=== PATIENT | male | born 1945 | race Caucasian/White ===

== ENCOUNTER 2022-12-14 16:30 | Inpatient (IN) ==
[2022-12-14] MEDS ORDERED: 0.9 % SODIUM CHLORIDE 1,000 ML IV ONE (17:10)
[2022-12-14] MEDS ORDERED: MAGNESIUM SULFATE 2 GM/50 ML BAG IV ONE (17:10)
[2022-12-14 17:39] LABS: POC Calcium, Ionized 1.08 (1.16-1.32); POC Creatinine 0.5 (0.6-1.2); POC Potassium 4.2 (3.3-5.1)
--- NOTE | 2022-12-14 17:44 | Emergency Department Note ---
HPI General Chief complaint: Dizziness Stated complaint: dizziness Time Seen by Provider: 12/14/22 16:38 Source: patient Mode of arrival: wheelchair Limitations: no limitations History of Present Illness HPI Narrative: Narrative: This 77-year-old male presents with the complaint of sudden onset of dizziness while he was out in the sun for too long yesterday. He states he was helping to dig a pool for his daughter. He got sweaty as well as dizzy, but he denied any chest pains. He thinks he may have had some palpitations; he rested initially, then went home and tried to drink lots of fluids, but he continued to be dizzy and developed a headache in the middle of the night. In addition, he's having multiple cramps periodically. Patient's past medical history includes hypertension, COPD, aortic stenosis, and previous episodes of dizziness. Related Data Home Medications Medication Instructions Recorded Confirmed hydrocodone 7.5 mg-acetaminophen 1 tab PO TID 03/05/20 12/15/22 325 mg tablet ibuprofen 200 mg tablet 200 mg PO Q6H PRN Pain 03/05/20 12/15/22 methocarbamol 750 mg tablet 750 mg PO Q8HP PRN muscle spasm 12/14/22 12/15/22 acetaminophen 500 mg tablet 500 mg PO TID 12/15/22 12/15/22 atorvastatin 10 mg tablet 10 mg PO DAILY 12/15/22 12/15/22 cholecalciferol (vitamin D3) 125 125 mcg PO DAILY 12/15/22 12/15/22 mcg (5,000 unit) tablet famotidine 10 mg tablet 10 mg PO DAILY 12/15/22 12/15/22 fluticasone 250 mcg-salmeterol 50 1 inh inhalation BID 12/15/22 12/15/22 mcg/dose blistr powdr for inhalation guaifenesin 600 mg tablet, 600 mg PO BID 12/15/22 12/15/22 extended release 12 hr losartan 25 mg tablet 25 mg PO BID 12/15/22 12/15/22 sildenafil 100 mg tablet 100 mg PO QDAY 12/15/22 12/15/22 tiotropium bromide 18 mcg capsule 1 cap inhalation DAILY 12/15/22 12/15/22 with inhalation device (Spiriva with HandiHaler) Previous Rx's Medication Instructions Recorded albuterol sulfate 90 mcg/actuation 2 puff inhalation Q6H PRN 01/09/21 aerosol inhaler shortness of breath or wheezing #8.5 grams lidocaine 5 % topical patch 1 patch topical QDAY PRN pain #15 04/22/22 (Lidoderm) ea Allergies Allergy/AdvReac Type Severity Reaction Status Date / Time bismuth subsalicylate AdvReac Mild nausea and Verified 12/15/22 07:56 [From Pepto-Bismol] vomiting tamsulosin AdvReac Mild Low blood Verified 12/15/22 07:56 pressure Review of Systems ROS ROS Narrative: Narrative: All systems ED: reviewed and negative except as stated. PFSH Narrative Patient History Narrative: Narrative: Medical/Surgical/Family History All Active Problems (Updated 12/16/22 @ 10:17 by Mike Villatoro MD) Hyponatremia (Chronic) Essential hypertension (Acute) Cigarette smoker (Acute) Acute hyponatremia (Acute) Dizziness (Acute) Osteoarthritis of left shoulder (Chronic) Bursitis of left shoulder (Chronic) Spondylolisthesis of cervical region (Chronic) Degenerative disc disease, cervical (Chronic) Facet arthropathy, cervical (Chronic) Myofascial pain syndrome (Chronic) Dizziness (Chronic) Aortic stenosis, severe (Chronic) Vitamin D deficiency (Chronic) Tobacco use (Chronic) Tinea pedis (Chronic) Shoulder pain (Chronic) Microscopic hematuria (Chronic) Hyperlipidemia (Chronic) Hip pain (Chronic) GERD (gastroesophageal reflux disease) (Chronic) Erectile dysfunction (Chronic) Elevated PSA (Chronic) Depression (Chronic) Chronic obstructive pulmonary disease (Chronic) Chronic low back pain (Chronic) Benign essential hypertension (Chronic) Cervicalgia (Chronic) Sinusitis (Chronic) Acute exacerbation of chronic obstructive airways disease (Chronic) Blood pressure elevated without history of HTN (Chronic) Chronic neck pain (Chronic) Cervical radiculopathy (Chronic) Headache (Chronic) Medical History Acute exacerbation of chronic obstructive airways disease Aortic stenosis, severe Benign essential hypertension Blood pressure elevated without history of HTN Bursitis of left shoulder Cervical radiculopathy Cervicalgia Chronic low back pain Chronic neck pain Chronic obstructive pulmonary disease Degenerative disc disease, cervical Depression Dizziness Elevated PSA Erectile dysfunction Facet arthropathy, cervical GERD (gastroesophageal reflux disease) Headache Hip pain Hyperlipidemia Microscopic hematuria Myofascial pain syndrome Osteoarthritis of left shoulder Shoulder pain Sinusitis Spondylolisthesis of cervical region Tinea pedis Tobacco use Vitamin D deficiency Surgical History History of colonoscopy History of hernia repair Family History Other No pertinent family history Social History Smoking Status: Current every day smoker Alcohol Intake Frequency: does not drink Substance Use: does not use Exam Narrative Narrative: Narrative: General: No acute distress alert and oriented x3 answers questions cogently. Skin: Well tanned as well as inflamed. Capillary refill within 3 seconds. Pulmonary: Clear to auscultation equal bilaterally without rales rhonchi or wheezes. CV: Positive systolic ejection murmur. Abdomen: Soft nontender. Neuro: GCS equals 15. NIH stroke scale equals 0 no sensory or motor lateralizing deficits. General Limitations: no limitations Course Course Course Narrative: EKG showed a sinus rhythm at a rate of 71 with an incomplete right bundle branch block a QTc of 434. This was essentially unchanged from previous EKGs. Patient's sodium is 118 on questioning he states he does not drink huge amounts of water and does not try to avoid salt. I suggested admitting the patient for hypertonic saline treatment but he is resistant to this idea. Patient was started on 3% sodium here in the ED and patient will be turned over to the oncoming doctor at change of shift Vital Signs Vital signs: Vital Signs Temperature 97.0 F 12/14/22 16:32 Pulse Rate 72 12/14/22 16:32 Respiratory Rate 18 12/14/22 16:32 Blood Pressure 147/77 12/14/22 16:32 Pulse Oximetry (%) 97 12/14/22 16:32 Oxygen Delivery Method Room Air 12/14/22 16:32 Temperature 97.2 F 12/18/22 10:36 Pulse Rate 88 12/18/22 10:36 Respiratory Rate 16 12/18/22 10:36 Blood Pressure 136/79 12/18/22 10:36 Pulse Oximetry (%) 96 12/18/22 10:36 Oxygen Delivery Method Room Air 12/18/22 10:36 Oxygen Flow Rate (L/min) 0 12/18/22 02:01 [facility] MDM Narrative Medical decision making narrative: Narrative: Lab Data 12/17/22 04:07 12/18/22 04:00 Labs: Lab Results 12/14/22 12/14/22 12/14/22 Range/Units 17:30 17:30 17:31 WBC 6.9 (4.5-11.0) K/mcL RBC 4.17 L (4.63-6.08) M/mcL Hgb 13.0 L (13.7-17.5) g/dL Hct 35.9 L (40.1-51.0) % POC Hct (41-55) MCV 86.1 (80.0-100.0) fL MCH 31.2 (26.0-34.0) pg MCHC 36.2 H (31.0-36.0) g/dL RDW 11.9 (11.5-14.5) % Plt Count 231 (140-440) K/mcL MPV 10.2 (8.8-12.5) fL Immature Gran % (Auto) 0.3 (0.0-0.5) % Neut % (Auto) 52.0 (38.0-78.0) % Lymph % (Auto) 15.7 (15.5-49.0) % [place] % (Auto) 12.1 H (1.0-12.0) % Eos % (Auto) 18.3 H (0.0-7.0) % Baso % (Auto) 1.6 (0.0-2.0) % Lymph # (Auto) 1.08 L (1.50-4.80) K/mcL [place] # (Auto) 0.83 (0.10-0.90) K/mcL Eos # (Auto) 1.26 H (0.00-0.70) K/mcL Baso # (Auto) 0.11 (0.00-0.30) K/mcL Immature Gran # 0.02 (0.00-0.05) K/mcl Absolute Neutrophils 3.58 (1.80-8.00) K/mcL POC Sodium (133-145) Sodium 114 L* (133-145) mmol/L POC Potassium (3.3-5.1) Potassium 4.5 (3.3-5.1) mmol/L POC Chloride (96-108) Chloride 84 L (96-108) mmol/L Carbon Dioxide 20 L (22-30) mmol/L POC Total CO2 (22-30) Anion Gap 10.0 (8.0-16.0) POC BUN (6-20) BUN 6 L (8-23) mg/dL Creatinine 0.5 L (0.7-1.2) mg/dL POC Creatinine (0.6-1.2) GFR Calculation 104 Glucose 111 H (70-105) mg/dL POC Glucose (70-105) Osmolality 243 L (280-300) mOSM/kg Uric Acid 4.0 (2.5-8.0) mg/dL Calcium 8.7 (8.6-10.4) mg/dL POC WB Ioniz Calcium (1.16-1.32) Phosphorus 3.0 (2.5-4.5) mg/dL Magnesium 1.6 (1.6-2.5) mg/dL Total Bilirubin 0.6 (0.1-1.0) mg/dL Direct Bilirubin < 0.2 (0-0.3) mg/dL GGT 14 (8-61) U/L AST 30 (<40) U/L ALT 21 (<40) U/L Alkaline Phosphatase 61 (39-117) U/L Lactate Dehydrogenase 363 H (135-225) U/L Total Protein 6.1 (5.9-8.4) gm/dL Albumin 3.9 (3.2-5.2) gm/dL Globulin 2.2 (2.2-3.7) gm/dL Albumin/Globulin Ratio 1.8 (1.0-2.3) Triglycerides 82 (<150) mg/dL TSH 0.27 (0.27-5.01) uIU/mL Urine Color Urine Appearance (Clear) Urine pH (5.0-9.0) Ur Specific [place] (1.000-1.035) Urine Protein (Negative) mg/dL Urine Glucose (UA) (Negative) mg/dL Urine Ketones (Negative) mg/dL Urine Occult Blood (Negative) mg/dL Urine Nitrate (Negative) Urine Bilirubin (Negative) mg/dL Urine Urobilinogen mg/dL Ur Leukocyte Esterase (Negative) /uL Ur Culture Indicated? Urine Osmolality (80-1000) mOSM/kg Ur Random Sodium mmol/L POC Troponin I (0.00-0.08) 12/14/22 12/14/22 12/14/22 Range/Units 17:34 18:49 18:51 WBC (4.5-11.0) K/mcL RBC (4.63-6.08) M/mcL Hgb (13.7-17.5) g/dL Hct (40.1-51.0) % POC Hct 41.0 40.0 L (41-55) MCV (80.0-100.0) fL MCH (26.0-34.0) pg MCHC (31.0-36.0) g/dL RDW (11.5-14.5) % Plt Count (140-440) K/mcL MPV (8.8-12.5) fL Immature Gran % (Auto) (0.0-0.5) % Neut % (Auto) (38.0-78.0) % Lymph % (Auto) (15.5-49.0) % [place] % (Auto) (1.0-12.0) % Eos % (Auto) (0.0-7.0) % Baso % (Auto) (0.0-2.0) % Lymph # (Auto) (1.50-4.80) K/mcL [place] # (Auto) (0.10-0.90) K/mcL Eos # (Auto) (0.00-0.70) K/mcL Baso # (Auto) (0.00-0.30) K/mcL Immature Gran # (0.00-0.05) K/mcl Absolute Neutrophils (1.80-8.00) K/mcL POC Sodium 118 L* 119 L (133-145) Sodium (133-145) mmol/L POC Potassium 4.2 4.7 (3.3-5.1) Potassium (3.3-5.1) mmol/L POC Chloride 86 L 87 L (96-108) Chloride (96-108) mmol/L Carbon Dioxide (22-30) mmol/L POC Total CO2 24.0 25.0 (22-30) Anion Gap (8.0-16.0) POC BUN 6 5 L (6-20) BUN (8-23) mg/dL Creatinine (0.7-1.2) mg/dL POC Creatinine 0.5 L 0.4 L (0.6-1.2) GFR Calculation Glucose (70-105) mg/dL POC Glucose 115 H 105 (70-105) Osmolality (280-300) mOSM/kg Uric Acid (2.5-8.0) mg/dL Calcium (8.6-10.4) mg/dL POC WB Ioniz Calcium 1.08 L 1.09 L (1.16-1.32) Phosphorus (2.5-4.5) mg/dL Magnesium (1.6-2.5) mg/dL Total Bilirubin (0.1-1.0) mg/dL Direct Bilirubin (0-0.3) mg/dL GGT (8-61) U/L AST (<40) U/L ALT (<40) U/L Alkaline Phosphatase (39-117) U/L Lactate Dehydrogenase (135-225) U/L Total Protein (5.9-8.4) gm/dL Albumin (3.2-5.2) gm/dL Globulin (2.2-3.7) gm/dL Albumin/Globulin Ratio (1.0-2.3) Triglycerides (<150) mg/dL TSH (0.27-5.01) uIU/mL Urine Color Urine Appearance (Clear) Urine pH (5.0-9.0) Ur Specific [place] (1.000-1.035) Urine Protein (Negative) mg/dL Urine Glucose (UA) (Negative) mg/dL Urine Ketones (Negative) mg/dL Urine Occult Blood (Negative) mg/dL Urine Nitrate (Negative) Urine Bilirubin (Negative) mg/dL Urine Urobilinogen mg/dL Ur Leukocyte Esterase (Negative) /uL Ur Culture Indicated? Urine Osmolality (80-1000) mOSM/kg Ur Random Sodium mmol/L POC Troponin I < 0.02 (0.00-0.08) 12/14/22 12/14/22 12/14/22 Range/Units 19:58 20:19 20:19 WBC (4.5-11.0) K/mcL RBC (4.63-6.08) M/mcL Hgb (13.7-17.5) g/dL Hct (40.1-51.0) % POC Hct (41-55) MCV (80.0-100.0) fL MCH (26.0-34.0) pg MCHC (31.0-36.0) g/dL RDW (11.5-14.5) % Plt Count (140-440) K/mcL MPV (8.8-12.5) fL Immature Gran % (Auto) (0.0-0.5) % Neut % (Auto) (38.0-78.0) % Lymph % (Auto) (15.5-49.0) % [place] % (Auto) (1.0-12.0) % Eos % (Auto) (0.0-7.0) % Baso % (Auto) (0.0-2.0) % Lymph # (Auto) (1.50-4.80) K/mcL [place] # (Auto) (0.10-0.90) K/mcL Eos # (Auto) (0.00-0.70) K/mcL Baso # (Auto) (0.00-0.30) K/mcL Immature Gran # (0.00-0.05) K/mcl Absolute Neutrophils (1.80-8.00) K/mcL POC Sodium (133-145) Sodium (133-145) mmol/L POC Potassium (3.3-5.1) Potassium (3.3-5.1) mmol/L POC Chloride (96-108) Chloride (96-108) mmol/L Carbon Dioxide (22-30) mmol/L POC Total CO2 (22-30) Anion Gap (8.0-16.0) POC BUN (6-20) BUN (8-23) mg/dL Creatinine (0.7-1.2) mg/dL POC Creatinine (0.6-1.2) GFR Calculation Glucose (70-105) mg/dL POC Glucose (70-105) Osmolality (280-300) mOSM/kg Uric Acid (2.5-8.0) mg/dL Calcium (8.6-10.4) mg/dL POC WB Ioniz Calcium (1.16-1.32) Phosphorus (2.5-4.5) mg/dL Magnesium (1.6-2.5) mg/dL Total Bilirubin (0.1-1.0) mg/dL Direct Bilirubin (0-0.3) mg/dL GGT (8-61) U/L AST (<40) U/L ALT (<40) U/L Alkaline Phosphatase (39-117) U/L Lactate Dehydrogenase (135-225) U/L Total Protein (5.9-8.4) gm/dL Albumin (3.2-5.2) gm/dL Globulin (2.2-3.7) gm/dL Albumin/Globulin Ratio (1.0-2.3) Triglycerides (<150) mg/dL TSH (0.27-5.01) uIU/mL Urine Color Straw Urine Appearance Clear (Clear) Urine pH 7.0 (5.0-9.0) Ur Specific [place] 1.001 (1.000-1.035) Urine Protein Negative (Negative) mg/dL Urine Glucose (UA) Negative (Negative) mg/dL Urine Ketones Negative (Negative) mg/dL Urine Occult Blood Negative (Negative) mg/dL Urine Nitrate Negative (Negative) Urine Bilirubin Negative (Negative) mg/dL Urine Urobilinogen Negative mg/dL Ur Leukocyte Esterase Negative (Negative) /uL Ur Culture Indicated? No Urine Osmolality 66 L (80-1000) mOSM/kg Ur Random Sodium 13 mmol/L POC Troponin I (0.00-0.08) Discharge Plan Patient/Caregiver Discharge Instructions Pt seen by BATTERY SERVICE TECHNICIAN/PA only: No Clinical Impression: Acute hyponatremia, Dizziness Activity: increase activity as tolerated Patient Disposition: Xfer As Outpt/Obs ([facility]) Condition: Fair Discharge Date/Time: 12/14/22 20:38
[2022-12-14 18:09] LABS: Basophils # (Auto) 0.11 K/mcL (0.00-0.30); Basophils % (Auto) 1.6 % (0.0-2.0); Eosinophils # (Auto) 1.26 K/mcL (0.00-0.70); Eosinophils % (Auto) 18.3 % (0.0-7.0); Hematocrit 35.9 % (40.1-51.0); Lymphocytes # (Auto) 1.08 K/mcL (1.50-4.80); Lymphocytes % (Auto) 15.7 % (15.5-49.0); Mean Cell Volume 86.1 fL (80.0-100.0); Mean Corpuscular HGB Conc 36.2 g/dL (31.0-36.0); Mean Platelet Volume 10.2 fL (8.8-12.5); Monocytes # (Auto) 0.83 K/mcL (0.10-0.90); Monocytes % (Auto) 12.1 % (1.0-12.0); Platelet Count 231 K/mcL (140-440); RBC 4.17 M/mcL (4.63-6.08); Red Cell Distribution Width 11.9 % (11.5-14.5); WBC 6.9 K/mcL (4.5-11.0)
[2022-12-14 19:04] LABS: POC Calcium, Ionized 1.09 (1.16-1.32); POC Creatinine 0.4 (0.6-1.2); POC Potassium 4.7 (3.3-5.1)
--- NOTE | 2022-12-14 19:27 | Cat Scan Report ---
History: Headaches, dizziness, low sodium level TECHNIQUE: The brain was imaged without contrast in axial plane at 2.5 mm intervals. Sagittal and coronal reformats were created. The radiation exposure was limited using dose reduction technology. FINDINGS: No mass, hemorrhage, infarct or significant degenerative change are present. The ventricles and cisterns are normal. There is no abnormal extra-axial fluid collection. Bone windows show no skull lesion. Sinuses are clear. There has been no significant change since 03/05/20. IMPRESSION: Normal brain Interpreted and Authenticated by: Chadd Morales 12/14/22
--- NOTE | 2022-12-14 19:36 | Emergency Department Note ---
Course Course Course Narrative: I assumed care of patient at [address] of the head. CT of the head was obtained with image reviewed myself with no acute intracranial pathology. Repeat labs show that patient's sodium level only slightly improved up to 119. Other labs are reassuring to include normal white cell count and renal function. Patient was initially resistant to admission when the discussion was had with the off going provider. I advised the patient that he is critically low and his sodium and we talked about the risk of leaving without being medically treated. Patient has agreed to be admitted to the hospital. He states that his dizziness is a little bit better after receiving fluids. Case discussed with hospitalist who has agreed to admit the patient. Plan of care was discussed with patient he expressed verbal understanding and agreement of plan. Consultations Consultation #1: Case discussed with hospitalist, Dr. Fuentes, who has agreed to admit the patient. Time: 19:39 Vital Signs Vital signs: Vital Signs Temperature 97.0 F 12/14/22 16:32 Pulse Rate 72 12/14/22 16:32 Respiratory Rate 18 12/14/22 16:32 Blood Pressure 147/77 12/14/22 16:32 Pulse Oximetry (%) 97 12/14/22 16:32 Oxygen Delivery Method Room Air 12/14/22 16:32 Temperature 97.0 F 12/14/22 16:32 Pulse Rate 67 12/14/22 18:32 Respiratory Rate 18 12/14/22 16:32 Blood Pressure 133/80 12/14/22 17:26 Pulse Oximetry (%) 98 12/14/22 18:32 Oxygen Delivery Method Room Air 12/14/22 16:32 [facility] Narrative Medical decision making narrative: Narrative: Differential Diagnosis Differential Diagnosis: Symptomatic hyponatremia, dizziness Medical Records Medical records reviewed: Yes I reviewed the patient's medical records. Lab Data Lab results reviewed: Yes I reviewed the patient's lab results. 12/14/22 17:31 Labs: Lab Results 12/14/22 12/14/22 12/14/22 Range/Units 17:31 17:34 18:49 WBC 6.9 (4.5-11.0) K/mcL RBC 4.17 L (4.63-6.08) M/mcL Hgb 13.0 L (13.7-17.5) g/dL Hct 35.9 L (40.1-51.0) % POC Hct 41.0 40.0 L (41-55) MCV 86.1 (80.0-100.0) fL MCH 31.2 (26.0-34.0) pg MCHC 36.2 H (31.0-36.0) g/dL RDW 11.9 (11.5-14.5) % Plt Count 231 (140-440) K/mcL MPV 10.2 (8.8-12.5) fL Immature Gran % (Auto) 0.3 (0.0-0.5) % Neut % (Auto) 52.0 (38.0-78.0) % Lymph % (Auto) 15.7 (15.5-49.0) % [place] % (Auto) 12.1 H (1.0-12.0) % Eos % (Auto) 18.3 H (0.0-7.0) % Baso % (Auto) 1.6 (0.0-2.0) % Lymph # (Auto) 1.08 L (1.50-4.80) K/mcL [place] # (Auto) 0.83 (0.10-0.90) K/mcL Eos # (Auto) 1.26 H (0.00-0.70) K/mcL Baso # (Auto) 0.11 (0.00-0.30) K/mcL Immature Gran # 0.02 (0.00-0.05) K/mcl Absolute Neutrophils 3.58 (1.80-8.00) K/mcL POC Sodium 118 L* 119 L (133-145) POC Potassium 4.2 4.7 (3.3-5.1) POC Chloride 86 L 87 L (96-108) POC Total CO2 24.0 25.0 (22-30) POC BUN 6 5 L (6-20) POC Creatinine 0.5 L 0.4 L (0.6-1.2) POC Glucose 115 H 105 (70-105) POC WB Ioniz Calcium 1.08 L 1.09 L (1.16-1.32) POC Troponin I (0.00-0.08) / Range/Units 18:51 WBC (4.5-11.0) K/mcL RBC (4.63-6.08) M/mcL Hgb (13.7-17.5) g/dL Hct (40.1-51.0) % POC Hct (41-55) MCV (80.0-100.0) fL MCH (26.0-34.0) pg MCHC (31.0-36.0) g/dL RDW (11.5-14.5) % Plt Count (140-440) K/mcL MPV (8.8-12.5) fL Immature Gran % (Auto) (0.0-0.5) % Neut % (Auto) (38.0-78.0) % Lymph % (Auto) (15.5-49.0) % [place] % (Auto) (1.0-12.0) % Eos % (Auto) (0.0-7.0) % Baso % (Auto) (0.0-2.0) % Lymph # (Auto) (1.50-4.80) K/mcL [place] # (Auto) (0.10-0.90) K/mcL Eos # (Auto) (0.00-0.70) K/mcL Baso # (Auto) (0.00-0.30) K/mcL Immature Gran # (0.00-0.05) K/mcl Absolute Neutrophils (1.80-8.00) K/mcL POC Sodium (133-145) POC Potassium (3.3-5.1) POC Chloride (96-108) POC Total CO2 (22-30) POC BUN (6-20) POC Creatinine (0.6-1.2) POC Glucose (70-105) POC WB Ioniz Calcium (1.16-1.32) POC Troponin I < 0.02 (0.00-0.08) Radiology Data Radiology results reviewed: Yes I reviewed the patient's radiology results. Radiology results narrative: CT of the head obtained with image reviewed myself, I agree with radiologist interpretation Core Measures AMI Core Measures Followed: Yes Discharge Plan Patient/Caregiver Discharge Instructions Pt seen by WRAPPING MACHINE TENDER/PA only: No Clinical Impression: Acute hyponatremia, Dizziness Patient Disposition: Xfer As Outpt/Obs ([facility]) Condition: Fair Follow up with: Chadd Morris ARNP [Primary Care Provider] - Prescriptions: No Action ibuprofen 200 mg tablet 200 mg PO Q6H PRN (Reason: Pain) hydrocodone-acetaminophen 7.5-325 mg tablet 1 tab PO BID PRN (Reason: Pain) cholecalciferol (vitamin D3) 50 mcg (2,000 unit) capsule 50 mcg PO QDAY Combivent Respimat 20-100 mcg/actuation mist 1 puff inhalation QID Qty: 4 0RF Rx Instructions: space evenly during waking hours methocarbamol 750 mg tablet 750 mg PO Q8H PRN (Reason: muscle spasm) Qty: 20 0RF albuterol sulfate 90 mcg/actuation HFA aerosol inhaler 2 puff inhalation Q6H PRN (Reason: shortness of breath or wheezing) Qty: 8.5 0RF lidocaine [Lidoderm] 5 % adhesive patch,medicated 1 patch topical QDAY PRN (Reason: pain) Qty: 15 0RF Rx Instructions: leave on most painful area for up to 12 hrs cyclobenzaprine 5 mg tablet 5 mg PO TID PRN (Reason: muscle spasm) Qty: 10 0RF
--- NOTE | 2022-12-14 20:00 | Internal Med History&Physical ---
HPI History of Present Illness Patient information: Note initiated : 12/14/22 at 7:53 pm Service Date, if different from initiated Date: [] Patient: Fracisco Fernandez a 77 y/o M admitted on for dizziness. Chief Complaint: [] History of present illness: Mr. Fernandez is a 77 year old M Presents to the ED with dizziness lightheadedness headaches muscle cramping and nausea but no vomiting. He noticed it today while he was out working in the sun. Patient has been out in the sun for the past few days taking a whole for a pool. He says he usually does fine in the sun but really noticed today how ill he was starting to become. Patient denies chest pain shortness of breath diarrhea. In the ED he was evaluated found to have a tnxjp-[id number]-twxj sodium of 118. Hypochloride anemia. Other labs pending. Head CT done and unremarkable. Patient started on IV fluid. Review of Systems: Pertinent positives as above. Denies headache/fever/chills/nausea/vomiting/chest or abdominal pain/cough/dyspnea/diarrhea. Remaining 10 point review of system reviewed negative PHYSICAL EXAM General: Alert, Awake, No acute Distress Eyes/N/T: EOMI, no scleral icterus, PERRL, dry MM Head/Neck: neck supple, full ROM, normocephalic atraumatic CV: RRR, No murmurs, normal s1/s2 Pulm: Clear b/l, no wheezing/rhonchi/rales, no respiratory distress Abd: soft, nontender, +BS x4 Ext: no clubbing/cyanosis/edema, nontender Neuro: Alert, CN 2-12 grossly intact, no focal deficits, moves all extremities, , sensations intact b/l upper/lower Psychiatric: Skin: warm/dry, normal color, poor skin turgor PFSH PFSH All Active Problems (Updated 12/14/22 @ 19:30 by Marcin Woodall DO) Acute hyponatremia (Acute) Dizziness (Acute) Osteoarthritis of left shoulder (Chronic) Bursitis of left shoulder (Chronic) Spondylolisthesis of cervical region (Chronic) Degenerative disc disease, cervical (Chronic) Facet arthropathy, cervical (Chronic) Myofascial pain syndrome (Chronic) Dizziness (Chronic) Aortic stenosis, severe (Chronic) Vitamin D deficiency (Chronic) Tobacco use (Chronic) Tinea pedis (Chronic) Shoulder pain (Chronic) Microscopic hematuria (Chronic) Hyperlipidemia (Chronic) Hip pain (Chronic) GERD (gastroesophageal reflux disease) (Chronic) Erectile dysfunction (Chronic) Elevated PSA (Chronic) Depression (Chronic) Chronic obstructive pulmonary disease (Chronic) Chronic low back pain (Chronic) Benign essential hypertension (Chronic) Cervicalgia (Chronic) Sinusitis (Chronic) Acute exacerbation of chronic obstructive airways disease (Chronic) Blood pressure elevated without history of HTN (Chronic) Chronic neck pain (Chronic) Cervical radiculopathy (Chronic) Headache (Chronic) Medical History Acute exacerbation of chronic obstructive airways disease Aortic stenosis, severe Benign essential hypertension Blood pressure elevated without history of HTN Bursitis of left shoulder Cervical radiculopathy Cervicalgia Chronic low back pain Chronic neck pain Chronic obstructive pulmonary disease Degenerative disc disease, cervical Depression Dizziness Elevated PSA Erectile dysfunction Facet arthropathy, cervical GERD (gastroesophageal reflux disease) Headache Hip pain Hyperlipidemia Microscopic hematuria Myofascial pain syndrome Osteoarthritis of left shoulder Shoulder pain Sinusitis Spondylolisthesis of cervical region Tinea pedis Tobacco use Vitamin D deficiency Surgical History History of colonoscopy History of hernia repair Family History Other No pertinent family history Social History marital status: education level: high school service: Yes occupational status: retired smoking status: Current every day smoker alcohol intake frequency: does not drink substance use type: does not use MEDS/ALLERGIES Home Medications and Allergies Home Medications Medication Instructions Recorded Confirmed Type cholecalciferol (vitamin D3) 50 50 mcg PO QDAY 03/05/20 11/21/22 History mcg (2,000 unit) capsule hydrocodone 7.5 mg-acetaminophen 1 tab PO BID PRN Pain 03/05/20 11/21/22 History 325 mg tablet ibuprofen 200 mg tablet 200 mg PO Q6H PRN Pain 03/05/20 11/21/22 History albuterol sulfate 90 mcg/actuation 2 puff inhalation Q6H PRN 01/09/21 11/21/22 Rx aerosol inhaler shortness of breath or wheezing #8.5 grams ipratropium 20 mcg-albuterol 100 1 puff inhalation QID #4 grams 01/16/21 11/21/22 Rx mcg/actuation mist for inhalation (Combivent Respimat) cyclobenzaprine 5 mg tablet 5 mg PO TID PRN muscle spasm #10 04/22/22 11/21/22 Rx tabs lidocaine 5 % topical patch 1 patch topical QDAY PRN pain #15 04/22/22 11/21/22 Rx (Lidoderm) ea methocarbamol 750 mg tablet 750 mg PO Q8H PRN muscle spasm #20 11/21/22 11/21/22 Rx tabs Allergies Allergy/AdvReac Type Severity Reaction Status Date / Time bismuth subsalicylate Allergy Mild nausea and Verified 12/14/22 16:35 [From Pepto-Bismol] vomiting tamsulosin Allergy Unknown Low blood Verified 12/14/22 16:35 pressure EXAM Constitutional Vitals: Temp Pulse Resp BP Pulse Ox O2 Del Method 97.0 F 67 18 133/80 98 Room Air 12/14/22 16:32 12/14/22 18:32 12/14/22 16:32 12/14/22 17:26 12/14/22 18:32 12/14/22 16:32 DATA Data Completed and Pending Labs: Labs from last 24 hours 12/14/22 12/14/22 12/14/22 18:51 18:49 17:34 WBC RBC Hgb Hct POC Hct 40.0 L 41.0 MCV MCH MCHC RDW Plt Count MPV Immature Gran % (Auto) Neut % (Auto) Lymph % (Auto) [place] % (Auto) Eos % (Auto) Baso % (Auto) Lymph # (Auto) [place] # (Auto) Eos # (Auto) Baso # (Auto) Immature Gran # Absolute Neutrophils POC Sodium 119 L 118 L* Sodium POC Potassium 4.7 4.2 Potassium POC Chloride 87 L 86 L Chloride Carbon Dioxide POC Total CO2 25.0 24.0 Anion Gap POC BUN 5 L 6 BUN Creatinine POC Creatinine 0.4 L 0.5 L GFR Calculation Glucose POC Glucose 105 115 H Osmolality Uric Acid Calcium POC WB Ioniz Calcium 1.09 L 1.08 L Phosphorus Magnesium Total Bilirubin Direct Bilirubin GGT AST ALT Alkaline Phosphatase Lactate Dehydrogenase Total Protein Albumin Globulin Albumin/Globulin Ratio Triglycerides POC Troponin I < 0.02 12/14/22 12/14/22 17:31 17:30 WBC 6.9 RBC 4.17 L Hgb 13.0 L Hct 35.9 L POC Hct MCV 86.1 MCH 31.2 MCHC 36.2 H RDW 11.9 Plt Count 231 MPV 10.2 Immature Gran % (Auto) 0.3 Neut % (Auto) 52.0 Lymph % (Auto) 15.7 [place] % (Auto) 12.1 H Eos % (Auto) 18.3 H Baso % (Auto) 1.6 Lymph # (Auto) 1.08 L [place] # (Auto) 0.83 Eos # (Auto) 1.26 H Baso # (Auto) 0.11 Immature Gran # 0.02 Absolute Neutrophils 3.58 POC Sodium Sodium Pending POC Potassium Potassium Pending POC Chloride Chloride Pending Carbon Dioxide Pending POC Total CO2 Anion Gap Pending POC BUN BUN Pending Creatinine Pending POC Creatinine GFR Calculation Pending Glucose Pending POC Glucose Osmolality Pending Uric Acid Pending Calcium Pending POC WB Ioniz Calcium Phosphorus Pending Magnesium Pending Total Bilirubin Pending Direct Bilirubin Pending GGT Pending AST Pending ALT Pending Alkaline Phosphatase Pending Lactate Dehydrogenase Pending Total Protein Pending Albumin Pending Globulin Pending Albumin/Globulin Ratio Pending Triglycerides Pending POC Troponin I A/P Narrative A/P Narrative: A: *Acute hyponatremia, severe: -Looks like chronically he is borderline low on labs but has never been hyponatremic that I can see *Volume Depletion: *HTN/HLD: cont statin/BB *COPD(not on home O2) *Chr pain back/neck: opioid dependent *Tobacco abuse: * P: -NS IVF, f/u sodium -Hyponatremia w/u pending -monitor UOP/renal fxn -trend and replace electrolytes prn - -prn nebs -cont home BB/statin -Home medication reconciliation -PT/OT -Smoking cessation counseling >3 minutes -ppx: Lovenox Time Spent With Patient Time: Total time spent is greater than 50% in coordination of care (as documented) at patient's floor/unit and/or counseling patient: Initial: Total time with patient: 75 - 90 minutes
[2022-12-14 20:18] LABS: ALT/SGPT 21 U/L (<40); AST/SGOT 30 U/L (<40); Albumin 3.9 gm/dL (3.2-5.2); Albumin/Globulin Ratio 1.8 (1.0-2.3); Alkaline Phosphatase 61 U/L (39-117); Bilirubin,Direct < 0.2 mg/dL (0-0.3); Bilirubin,Total 0.6 mg/dL (0.1-1.0); Blood Urea Nitrogen 6 mg/dL (8-23); Calcium 8.7 mg/dL (8.6-10.4); Carbon Dioxide 20 mmol/L (22-30); Chloride 84 mmol/L (96-108); Globulin 2.2 gm/dL (2.2-3.7); Glomerular Filtration Rate 104; Glucose 111 mg/dL (70-105); Lactate Dehydrogenase 363 U/L (135-225); Triglycerides 82 mg/dL (<150)
[2022-12-14] MEDS ORDERED: POTASSIUM CHLORIDE 40 MEQ in DEXTROSE 5% IN WATER 500 ML IV PRN (20:39)
[2022-12-14] MEDS ORDERED: IPRATROPIUM/ALBUTEROL 3 ML AMPUL.NEB NEB PRN (20:39)
[2022-12-14] MEDS ORDERED: POTASSIUM CHLORIDE 20 MEQ TABLET PO PRN ×2 (20:39)
[2022-12-14] MEDS ORDERED: SENNOSIDES 1 TABLET PO PRN (20:39)
[2022-12-14] MEDS ORDERED: POLYETHYLENE GLYCOL 3350 17 GM PACKET PO PRN (20:39)
[2022-12-14] MEDS ORDERED: MAGNESIUM SULFATE 2 GM/50 ML BAG IV PRN (20:39)
[2022-12-14 20:40] LABS: Appearance,Urine CLEAR (Clear); Bilirubin,Urine Negative (Negative); Color,Urine STRAW; Culture Indicated,Urine No; Glucose,Urine (UA) Negative (Negative); Ketones,Urine Negative (Negative); Leukocyte Esterase,Urine Negative /uL (Negative); Nitrate,Urine Negative (Negative); Protein,Urine Negative (Negative); Specific Gravity,Urine 1.001 (1.000-1.035); Urine Blood Negative (Negative); Urobilinogen,Urine Negative
[2022-12-14] MEDS: LACTATED RINGERS 1,000 ML IV SCH (21:08)
[2022-12-14] MEDS ORDERED: IBUPROFEN 200 MG TABLET PO PRN (21:11)
[2022-12-14] MEDS ORDERED: METHOCARBAMOL 750 MG TABLET PO PRN (21:30)
[2022-12-14] MEDS ORDERED: LIDOCAINE PATCH TOPICAL PRN (21:30)
[2022-12-14] MEDS: DOCUSATE SODIUM 100 MG CAPSULE PO SCH (21:57)
[2022-12-14] MEDS: LIDOCAINE PATCH TOPICAL SCH (22:02)
[2022-12-14] MEDS: METHOCARBAMOL 750 MG TABLET PO SCH (22:02)
[2022-12-14] MEDS: HYDROCODONE/APAP 7.5/325MG TABLET PO SCH (22:02)
[2022-12-14 23:11] LABS: POC Calcium, Ionized 1.12 (1.16-1.32); POC Creatinine 0.7 (0.6-1.2); POC Potassium 3.6 (3.3-5.1)
[2022-12-14] MEDS ORDERED: DEXTROSE 5% IN WATER 500 ML IV SCH (23:30)
[2022-12-15] MEDS: LACTATED RINGERS 1,000 ML IV SCH (04:50)
[2022-12-15 05:19] LABS: POC Calcium, Ionized 1.13 (1.16-1.32); POC Creatinine 0.6 (0.6-1.2); POC Potassium 4.1 (3.3-5.1)
[2022-12-15 06:24] LABS: ALT/SGPT 19 U/L (<40); AST/SGOT 18 U/L (<40); Albumin 3.4 gm/dL (3.2-5.2); Albumin/Globulin Ratio 1.4 (1.0-2.3); Alkaline Phosphatase 56 U/L (39-117); Bilirubin,Direct < 0.2 mg/dL (0-0.3); Bilirubin,Total 0.3 mg/dL (0.1-1.0); Blood Urea Nitrogen 6 mg/dL (8-23); Calcium 8.7 mg/dL (8.6-10.4); Carbon Dioxide 22 mmol/L (22-30); Chloride 97 mmol/L (96-108); Globulin 2.4 gm/dL (2.2-3.7); Glomerular Filtration Rate 96; Glucose 105 mg/dL (70-105); Lactate Dehydrogenase 178 U/L (135-225); Phosphorous 3.5 mg/dL (2.5-4.5); Triglycerides 70 mg/dL (<150); Uric Acid 4.4 mg/dL (2.5-8.0)
--- NOTE | 2022-12-15 07:42 | Internal Med Progress Note ---
SUBJECTIVE Subjective Patient information: Note initiated : 12/15/22 at 7:38 am Service Date, if different from initiated Date: [] Patient: Fracisco Fernandez 77 y/o M admitted on 12/14/22 for dizziness. Chief Complaint: [] Interval history: History of present illness: Mr. Fernandez is a 77 year old M Presents to the ED with dizziness lightheadedness headaches muscle cramping and nausea but no vomiting. He noticed it today while he was out working in the sun. Patient has been out in the sun for the past few days taking a whole for a pool. He says he usually does fine in the sun but really noticed today how ill he was starting to become. Patient denies chest pain shortness of breath diarrhea. In the ED he was evaluated found to have a hzltq-td-gzch sodium of 118. Hypochloride anemia. Other labs pending. Head CT done and unremarkable. Patient started on IV fluid. denies etoh intake or excessive water intake 12/15 Patient had significant auto diuresis. Rapid rise in sodium. Will reverse partially with DDAVP and D5 water and follow-up closely. Patient feeling better otherwise no nausea vomiting headache. Patient wanted to go home but I advised him of the risks and he understood, willing to stay until appropriately treated and medically cleared. Review of Systems: Pertinent positives as above. Denies headache/fever/chills /nausea/vomiting/chest or abdominal pain/cough/dyspnea/diarrhea. PHYSICAL EXAM General: Alert, Awake, No acute Distress Eyes/N/T: EOMI, no scleral icterus, Head/Neck: neck supple, full ROM, CV: RRR, No murmurs, Pulm: Clear b/l, no wheezing/rhonchi/rales, no respiratory distress Abd: soft, nontender, +BS x4 Ext: no clubbing/cyanosis/edema, nontender Neuro: Alert, no focal deficits, moves all extremities, , sensations intact b/l upper/lower Psychiatric: Skin: warm/dry, normal color, poor skin turgor Constitutional Vitals: Vital Signs Temp Pulse Resp BP Pulse Ox O2 Del Method 98.3 F 83 15 94/58 97 Room Air 12/15/22 04:07 12/15/22 00:01 12/15/22 06:01 12/15/22 06:01 12/15/22 07:31 12/15/22 07:31 Period Temp Pulse Resp BP Sys/Katz Pulse Ox O2 Del Method O2 Flow Rate Last 24 Hr 97.0 F-98.3 F 67-83 11-27 79-179/43-97 94-98 Room Air-Room Air Intake and Output 12/14/22 12/15/22 12/15/22 19:59 03:59 11:59 Intake Total 1498 500 Output Total 1200 1750 1500 Balance -1200 -252 -1000 Weight 65.771 kg 60.872 kg Intake & Output: Intake & Output 12/14/22 12/15/22 12/15/22 19:59 03:59 11:59 Intake Total 1498 500 Output Total 1200 1750 1500 Balance -1200 -252 -1000 Weight 65.771 kg 60.872 kg Intake: IV 1278 500 Sodium Chloride 0.9% 1,000 ml @ 1000 250 mls/hr IV [facility] Rx#: [id number] Dextrose 5% in Water 500 ml @ 500 100 mls/hr IV .Q5H [facility] Rx#: [id number] Lactated Ringers 1,000 ml @ 100 228 mls/hr IV .Q10H [facility] Rx#: [id number] Oral 220 Output: Void Amount 1200 1750 1500 Other: Urine Appearance Clear Clear Urine Color Pale Yellow OBJ DATA Labs 12/14/22 17:31 12/15/22 05:17 Labs: Abnormal Lab Results 12/15/22 12/15/22 12/14/22 05:17 05:13 23:06 RBC Hgb Hct POC Hct 38.0 L 38.0 L MCHC [place] % (Auto) Eos % (Auto) Lymph # (Auto) Eos # (Auto) POC Sodium 128 L 125 L Sodium 126 L POC Chloride 92 L Chloride Carbon Dioxide Anion Gap 7.0 L POC BUN 5 L 4 L BUN 6 L Creatinine 0.6 L POC Creatinine Glucose POC Glucose 108 H 151 H Osmolality POC WB Ioniz Calcium 1.13 L 1.12 L Lactate Dehydrogenase Total Protein 5.8 L Urine Osmolality 12/14/22 12/14/22 12/14/22 19:58 18:49 17:34 RBC Hgb Hct POC Hct 40.0 L MCHC [place] % (Auto) Eos % (Auto) Lymph # (Auto) Eos # (Auto) POC Sodium 119 L 118 L* Sodium POC Chloride 87 L 86 L Chloride Carbon Dioxide Anion Gap POC BUN 5 L BUN Creatinine POC Creatinine 0.4 L 0.5 L Glucose POC Glucose 115 H Osmolality POC WB Ioniz Calcium 1.09 L 1.08 L Lactate Dehydrogenase Total Protein Urine Osmolality 66 L 12/14/22 12/14/22 17:31 17:30 RBC 4.17 L Hgb 13.0 L Hct 35.9 L POC Hct MCHC 36.2 H [place] % (Auto) 12.1 H Eos % (Auto) 18.3 H Lymph # (Auto) 1.08 L Eos # (Auto) 1.26 H POC Sodium Sodium 114 L* POC Chloride Chloride 84 L Carbon Dioxide 20 L Anion Gap POC BUN BUN 6 L Creatinine 0.5 L POC Creatinine Glucose 111 H POC Glucose Osmolality 243 L POC WB Ioniz Calcium Lactate Dehydrogenase 363 H Total Protein Urine Osmolality Meds: Medications Hydrocodone Bitart/Acetaminophen (Hydrocodone/Apap 7.5/325mg Tablet) 1 tab PO TID [facility]; Protocol Last Admin: 12/14/22 22:02 Dose: 1 tab Albuterol/Ipratropium (Ipratropium/Albuterol 3 Ml Ampul.Neb) 3 ml NEB Q4HP PRN PRN Reason: Shortness Of Breath Docusate Sodium (Docusate Sodium 100 Mg Capsule) 100 mg PO BID [facility] Last Admin: 12/14/22 21:57 Dose: Not Given Enoxaparin Sodium (Enoxaparin 40 Mg/0.4 Ml Syringe) 40 mg SQ DAILY [facility] Hydralazine HCl (Hydralazine 20 Mg/Ml Vial) 0 mg IV Q2HP PRN PRN Reason: Hypertension Potassium Chloride 40 meq/ (Dextrose) 520 mls @ 130 mls/hr IV UD PRN PRN Reason: Potassium Level < 3 Magnesium Sulfate (Magnesium Sulfate) 2 gm in 50 mls @ 25 mls/hr IV UD PRN PRN Reason: Magnesium Level </= 1.6 Lactated Ringer's (Lactated Ringers) 1,000 mls @ 100 mls/hr IV .Q10H [facility] Last Admin: 12/15/22 04:50 Dose: Not Given Ibuprofen (Ibuprofen 200 Mg Tablet) 200 mg PO Q6HP PRN; Protocol PRN Reason: Pain Lidocaine (Lidocaine Patch) 1 patch TOPICAL DAILY@1000 [facility] Last Admin: 12/14/22 22:02 Dose: 1 patch Methocarbamol (Methocarbamol 750 Mg Tablet) 750 mg PO BID [facility] Last Admin: 12/14/22 22:02 Dose: 750 mg Methocarbamol (Methocarbamol 750 Mg Tablet) 750 mg PO Q8HP PRN PRN Reason: muscle spasm Ondansetron HCl (Ondansetron 4 Mg/2 Ml Vial) 4 mg IV Q4HP PRN PRN Reason: Nausea And Vomiting Polyethylene Glycol (Polyethylene Glycol 3350 17 Gm Packet) 17 gm PO DAILYP PRN PRN Reason: Constipation Potassium Chloride (Potassium Chloride 20 Meq Tablet) 40 meq PO UD PRN PRN Reason: Potassium Level of 3-3.5 Potassium Chloride (Potassium Chloride 20 Meq Tablet) 40 meq PO UD PRN PRN Reason: Potassium Level < 3 Senna (Sennosides 1 Tablet) 2 tab PO DAILYP PRN PRN Reason: Constipation A/P Narrative A/P Narrative: A: *Acute hyponatremia, severe: -Looks like chronically he is borderline low on labs but has never been hy ponatremic that I can see -sig auto diuresis and rapid rise *Volume Depletion: *HTN/HLD: cont statin/ARB *COPD(not on home O2) *Chr pain back/neck: opioid dependent *Tobacco abuse: *GERD P: -pt with auto diuresis rapid rise, started ddavp and D5w, monitor closely -serial sodium levels -monitor UOP/renal fxn -trend and replace electrolytes prn -nicotine patch -prn nebs, home IH's -cont home ARB/statin -PT/OT -Smoking cessation counseling -ppx: Lovenox / home H2 Time Spent With Patient Time: Total time spent is greater than 50% in coordination of care (as documented) at patient's floor/unit and/or counseling patient: Subsequent: Total time with patient: 50 - 65 Minutes QUALITY VTE Deep Vein Thrombosis/Pulmonary Embolism Present on Admission: No
[2022-12-15] MEDS ORDERED: DEXTROSE 5% IN WATER 1,000 ML IV SCH ×2 (07:45→12:45)
[2022-12-15] MEDS: DOCUSATE SODIUM 100 MG CAPSULE PO SCH ×2 (07:48→20:54)
[2022-12-15] MEDS ORDERED: DESMOPRESSIN ACETATE 2 MCG in 0.9 % SODIUM CHLORIDE 50 ML IV ONE (08:00)
[2022-12-15] MEDS ORDERED: HYDROcodone/APAP (PP) 7.5/325MG TABLET (#4) PO SCH (09:00)
[2022-12-15] MEDS: DESMOPRESSIN ACETATE 2 MCG in 0.9 % SODIUM CHLORIDE 50 ML IV SCH ×3 (09:09→20:53)
[2022-12-15] MEDS: HYDROCODONE/APAP 7.5/325MG TABLET PO SCH ×3 (09:14→20:53)
[2022-12-15] MEDS: ENOXAPARIN 40 MG/0.4 ML SYRINGE SQ SCH (09:15)
[2022-12-15] MEDS: METHOCARBAMOL 750 MG TABLET PO SCH ×2 (09:17→20:53)
[2022-12-15] MEDS: LIDOCAINE PATCH TOPICAL SCH (09:23)
[2022-12-15] MEDS: NICOTINE 21 MG PATCH TOPICAL SCH (10:31)
[2022-12-15 12:03] LABS: POC Calcium, Ionized 1.25 (1.16-1.32); POC Creatinine 0.6 (0.6-1.2); POC Potassium 4.4 (3.3-5.1)
[2022-12-15 18:08] LABS: POC Calcium, Ionized 1.17 (1.16-1.32); POC Creatinine 0.5 (0.6-1.2); POC Potassium 4.4 (3.3-5.1)
[2022-12-15] MEDS: ACETAMINOPHEN 325 MG TABLET PO PRN (18:40)
[2022-12-15] MEDS: 0.9 % SODIUM CHLORIDE 1,000 ML IV SCH (18:40)
[2022-12-15] MEDS ORDERED: ACETAMINOPHEN 325 MG TABLET PO ONE (18:42)
[2022-12-15] MEDS: LOSARTAN 25 MG TABLET PO SCH (20:53)
[2022-12-15] MEDS: FLUTICASONE/SALMETEROL 250/50 INHALER #14 INH SCH (21:08)
[2022-12-16] MEDS: ONDANSETRON 4 MG/2 ML VIAL IV PRN ×4 (02:09→19:14)
[2022-12-16 02:32] LABS: Blood Urea Nitrogen 6 mg/dL (8-23); Calcium 8.5 mg/dL (8.6-10.4); Carbon Dioxide 24 mmol/L (22-30); Chloride 86 mmol/L (96-108); Glomerular Filtration Rate 96; Glucose 97 mg/dL (70-105)
[2022-12-16] MEDS: FAMOTIDINE 20 MG TABLET PO SCH ×2 (03:48→09:05)
[2022-12-16 06:49] LABS: Basophils % (Auto) 1.4 % (0.0-2.0); Eosinophils # (Auto) 1.04 K/mcL (0.00-0.70); Eosinophils % (Auto) 14.9 % (0.0-7.0); Hematocrit 34.3 % (40.1-51.0); Hemoglobin 11.7 g/dL (13.7-17.5); Lymphocytes # (Auto) 1.32 K/mcL (1.50-4.80); Mean Cell Volume 87.7 fL (80.0-100.0); Mean Corpuscular HGB Conc 34.1 g/dL (31.0-36.0); Mean Platelet Volume 9.5 fL (8.8-12.5); Monocytes # (Auto) 0.88 K/mcL (0.10-0.90); Monocytes % (Auto) 12.6 % (1.0-12.0); Platelet Count 267 K/mcL (140-440); RBC 3.91 M/mcL (4.63-6.08); Red Cell Distribution Width 11.9 % (11.5-14.5)
[2022-12-16 07:29] LABS: Blood Urea Nitrogen 5 mg/dL (8-23); Calcium 8.6 mg/dL (8.6-10.4); Carbon Dioxide 23 mmol/L (22-30); Chloride 87 mmol/L (96-108); Glomerular Filtration Rate 96; Glucose 109 mg/dL (70-105)
[2022-12-16] MEDS: 0.9 % SODIUM CHLORIDE 1,000 ML IV SCH (07:49)
--- NOTE | 2022-12-16 08:05 | EKG ---
[facility] Test Date: 2022-12-14 Pat Name: Fracisco Fernandez Department: ED Room: Gender: Male [employer]: : 1945 Requested By: Noah Armstrong Order Number: [id number] Reading MD: Fracisco Rod Measurements Intervals [place] Rate: 71 P: 77 IN: 162 QRS: 19 QRSD: 112 T: 58 QT: 398 QTc: 434 Interpretive Statements Sinus rhythm Incomplete right bundle branch block Electronically Signed On 12-16-2022 8:05:11 PDT by Fracisco Rod /store/[email or web address]/[id number]
[2022-12-16] MEDS ORDERED: PHENobarb/HYOSCY/ATROPINE/SCOP 1 DOSE BOTTLE PO PRN (08:21)
[2022-12-16] MEDS: METHOCARBAMOL 750 MG TABLET PO SCH ×2 (08:57→20:28)
[2022-12-16] MEDS: ATORVASTATIN 10 MG TABLET PO SCH (08:57)
[2022-12-16] MEDS: NICOTINE 21 MG PATCH TOPICAL SCH (08:57)
[2022-12-16] MEDS: DOCUSATE SODIUM 100 MG CAPSULE PO SCH ×2 (08:58→20:28)
[2022-12-16] MEDS: ENOXAPARIN 40 MG/0.4 ML SYRINGE SQ SCH (08:58)
[2022-12-16] MEDS: HYDROCODONE/APAP 7.5/325MG TABLET PO SCH ×3 (08:58→20:28)
[2022-12-16] MEDS: LOSARTAN 25 MG TABLET PO SCH ×2 (08:58→20:28)
[2022-12-16] MEDS: LIDOCAINE PATCH TOPICAL SCH (08:59)
[2022-12-16] MEDS: FLUTICASONE/SALMETEROL 250/50 INHALER #14 INH SCH ×2 (09:05→20:32)
[2022-12-16] MEDS: TIOTROPIUM BROMIDE 18 MCG INHALANT INH SCH (09:05)
--- NOTE | 2022-12-16 09:08 | Internal Med Progress Note ---
SUBJECTIVE Subjective Patient information: Note initiated : 12/16/22 at 9:06 am Service Date, if different from initiated Date: [] Patient: Fracisco Fernandez a 77 y/o M admitted on 12/14/22 for dizziness. Chief Complaint: [] Interval history: Mr. Fernandez is a 77 year old M Presents to the ED with dizziness lightheadedness headaches muscle cramping and nausea but no vomiting. He noticed it today while he was out working in the sun. Patient has been out in the sun for the past few days taking a whole for a pool. He says he usually does fine in the sun but really noticed today how ill he was starting to become. Patient denies chest pain shortness of breath diarrhea. In the ED he was evaluated found to have a [id number] sodium of 118. H ypochloride anemia. Other labs pending. Head CT done and unremarkable. Patient started on IV fluid. denies etoh intake or excessive water intake 12/15 Patient had significant auto diuresis. Rapid rise in sodium. Will reverse partially with DDAVP and D5 water and follow-up closely. Patient feeling better otherwise no nausea vomiting headache. Patient wanted to go home but I advised him of the risks and he understood, willing to stay until appropriately treated and medically cleared. 12/16: Serum sodium level 117 last midnight and 117 this morning. Patient is still complaining of lightheadedness and burping. He denies any pain. He denies any nausea or vomting. He denies any muscle cramping. NS@75cc/hr. BMP q6hr. 2000cc/day fluid restriction. Consult Dr. Villatoro, recs. appreciated. Overall condition guarded. Stays in PCU. Constitutional Vitals: Vital Signs Temp Pulse Resp BP Pulse Ox O2 Del Method 36.1 C 58 L 14 148/96 97 Room Air 12/16/22 08:32 12/16/22 08:32 12/16/22 08:32 12/16/22 08:32 12/16/22 08:32 12/16/22 08:32 Period Temp Pulse Resp BP Sys/Katz Pulse Ox O2 Del Method O2 Flow Rate Last 24 Hr 36.1 C-36.8 C 56-69 11-31 104-151/62-105 96-99 Room Air-Room Air Intake and Output 05/12/16/22 12/16/22 19:59 03:59 11:59 Intake Total 2370.5 530.5 1266 Output Total 300 450 Balance 2370.5 230.5 816 Weight 67.086 kg Intake & Output: Intake & Output 12/15/22 12/16/22 12/16/22 19:59 03:59 11:59 Intake Total 2370.5 530.5 1266 Output Total 300 450 Balance 2370.5 230.5 816 Weight 67.086 kg Intake: IV 1530.5 50.5 986 Sodium Chloride 0.9% 1,000 ml @ 986 75 mls/hr IV .[id number] [facility] Rx#: [id number] Ddavp 2 Mcg In Sodium Chloride 50.5 50.5 0.9% 50 ml @ 200 mls/hr IV Q6H [facility] Rx#:[id number] Dextrose 5% in Water 1,000 ml @ 1480 200 mls/hr IV .Q5H [facility] Rx#: [id number] Oral 840 480 280 Output: Urine Catheter Amount 200 Void Amount 300 250 Other: Meal Lunch Dinner Percent of Meal Consumed 100% 100% Urine Appearance Clear Clear Urine Color Bright Yellow Dark Yellow Head Head exam: Present atraumatic and normal inspection Eye Eye exam: Present normal appearance ENT ENT exam: Present mucous membranes moist, normal exam and normal external ear exam Neck Neck exam: Present normal inspection Respiratory Respiratory exam: Present wheezes Cardiovascular Cardiovascular exam: Present normal rate and rhythm GI/Abdominal GI/Abdominal exam: Present normal bowel sounds Back Exam Back exam: Present normal inspection Neurological Exam Neurological exam: Present alert and oriented X3 Skin Skin exam: Present intact and warm OBJ DATA Labs 12/16/22 05:20 12/16/22 05:20 Labs: Abnormal Lab Results 12/16/22 12/16/22 12/16/22 05:20 05:20 00:20 RBC 3.91 L Hgb 11.7 L Hct 34.3 L POC Hct MCHC [place] % (Auto) 12.6 H Eos % (Auto) 14.9 H Lymph # (Auto) 1.32 L Eos # (Auto) 1.04 H POC Sodium Sodium 117 L* 117 L* POC Chloride Chloride 87 L 86 L Carbon Dioxide Anion Gap 7.0 L 7.0 L POC BUN BUN 5 L 6 L Creatinine 0.6 L 0.6 L POC Creatinine Glucose 109 H POC Glucose Osmolality Calcium 8.5 L POC WB Ioniz Calcium Lactate Dehydrogenase Total Protein Urine Osmolality 12/15/22 12/15/22 12/15/22 18:05 12:01 05:17 RBC Hgb Hct POC Hct 37.0 L 39.0 L MCHC [place] % (Auto) Eos % (Auto) Lymph # (Auto) Eos # (Auto) POC Sodium 120 L 125 L Sodium 126 L POC Chloride 86 L 91 L Chloride Carbon Dioxide Anion Gap 7.0 L POC BUN 5 L BUN 6 L Creatinine 0.6 L POC Creatinine 0.5 L Glucose POC Glucose 112 H Osmolality Calcium POC WB Ioniz Calcium Lactate Dehydrogenase Total Protein 5.8 L Urine Osmolality 12/15/22 12/14/22 12/14/22 05:13 23:06 19:58 RBC Hgb Hct POC Hct 38.0 L 38.0 L MCHC [place] % (Auto) Eos % (Auto) Lymph # (Auto) Eos # (Auto) POC Sodium 128 L 125 L Sodium POC Chloride 92 L Chloride Carbon Dioxide Anion Gap POC BUN 5 L 4 L BUN Creatinine POC Creatinine Glucose POC Glucose 108 H 151 H Osmolality Calcium POC WB Ioniz Calcium 1.13 L 1.12 L Lactate Dehydrogenase Total Protein Urine Osmolality 66 L 12/14/22 12/14/22 12/14/22 18:49 17:34 17:31 RBC 4.17 L Hgb 13.0 L Hct 35.9 L POC Hct 40.0 L MCHC 36.2 H [place] % (Auto) 12.1 H Eos % (Auto) 18.3 H Lymph # (Auto) 1.08 L Eos # (Auto) 1.26 H POC Sodium 119 L 118 L* Sodium POC Chloride 87 L 86 L Chloride Carbon Dioxide Anion Gap POC BUN 5 L BUN Creatinine POC Creatinine 0.4 L 0.5 L Glucose POC Glucose 115 H Osmolality Calcium POC WB Ioniz Calcium 1.09 L 1.08 L Lactate Dehydrogenase Total Protein Urine Osmolality 12/14/22 17:30 RBC Hgb Hct POC Hct MCHC [place] % (Auto) Eos % (Auto) Lymph # (Auto) Eos # (Auto) POC Sodium Sodium 114 L* POC Chloride Chloride 84 L Carbon Dioxide 20 L Anion Gap POC BUN BUN 6 L Creatinine 0.5 L POC Creatinine Glucose 111 H POC Glucose Osmolality 243 L Calcium POC WB Ioniz Calcium Lactate Dehydrogenase 363 H Total Protein Urine Osmolality Meds: Medications Acetaminophen (Acetaminophen 325 Mg Tablet) 650 mg PO Q6HP PRN; Protocol PRN Reason: Per Pain Protocol Last Admin: 12/15/22 18:40 Dose: 650 mg Hydrocodone Bitart/Acetaminophen (Hydrocodone/Apap 7.5/325mg Tablet) 1 tab PO TID [facility]; Protocol Last Admin: 12/16/22 08:58 Dose: 1 tab Albuterol/Ipratropium (Ipratropium/Albuterol 3 Ml Ampul.Neb) 3 ml NEB Q4HP PRN PRN Reason: Shortness Of Breath Last Admin: 12/15/22 09:27 Dose: 3 ml Atorvastatin Calcium (Atorvastatin 10 Mg Tablet) 10 mg PO DAILY [facility] Last Admin: 12/16/22 08:57 Dose: 10 mg Belladonna/Phenobarbital (Phenobarb/Hyoscy/Atropine/Scop 1 Dose Bottle) 1 dose PO Q4HP PRN PRN Reason: Dyspepsia Last Admin: 12/16/22 08:58 Dose: 1 dose Docusate Sodium (Docusate Sodium 100 Mg Capsule) 100 mg PO BID [facility] Last Admin: 12/16/22 08:58 Dose: 100 mg Enoxaparin Sodium (Enoxaparin 40 Mg/0.4 Ml Syringe) 40 mg SQ DAILY [facility] Last Admin: 12/16/22 08:58 Dose: 40 mg Famotidine (Famotidine 20 Mg Tablet) 20 mg PO DAILY [facility] Last Admin: 12/16/22 09:05 Dose: Not Given Hydralazine HCl (Hydralazine 20 Mg/Ml Vial) 0 mg IV Q2HP PRN PRN Reason: Hypertension Potassium Chloride 40 meq/ (Dextrose) 520 mls @ 130 mls/hr IV UD PRN PRN Reason: Potassium Level < 3 Magnesium Sulfate (Magnesium Sulfate) 2 gm in 50 mls @ 25 mls/hr IV UD PRN PRN Reason: Magnesium Level </= 1.6 Sodium Chloride (Sodium Chloride 0.9%) 1,000 mls @ 75 mls/hr IV .[id number] [facility] Last Admin: 12/16/22 07:49 Dose: 75 mls/hr Ibuprofen (Ibuprofen 200 Mg Tablet) 200 mg PO Q6HP PRN; Protocol PRN Reason: Pain Lidocaine (Lidocaine Patch) 1 patch TOPICAL DAILY@1000 [facility] Last Admin: 12/16/22 08:59 Dose: Not Given Losartan Potassium (Losartan 25 Mg Tablet) 25 mg PO BID [facility] Last Admin: 12/16/22 08:58 Dose: 25 mg Meclizine HCl (Meclizine 25 Mg Tablet) 25 mg PO TIDP PRN PRN Reason: Vertigo Methocarbamol (Methocarbamol 750 Mg Tablet) 750 mg PO BID [facility] Last Admin: 12/16/22 08:57 Dose: 750 mg Methocarbamol (Methocarbamol 750 Mg Tablet) 750 mg PO Q8HP PRN PRN Reason: muscle spasm Nicotine (Nicotine 21 Mg Patch) 21 mg TOPICAL DAILY@1000 [facility] Last Admin: 12/16/22 08:57 Dose: 21 mg Ondansetron HCl (Ondansetron 4 Mg/2 Ml Vial) 4 mg IV Q4HP PRN PRN Reason: Nausea And Vomiting Last Admin: 12/16/22 07:56 Dose: 4 mg Polyethylene Glycol (Polyethylene Glycol 3350 17 Gm Packet) 17 gm PO DAILYP PRN PRN Reason: Constipation Potassium Chloride (Potassium Chloride 20 Meq Tablet) 40 meq PO UD PRN PRN Reason: Potassium Level of 3-3.5 Potassium Chloride (Potassium Chloride 20 Meq Tablet) 40 meq PO UD PRN PRN Reason: Potassium Level < 3 Fluticasone/Salmeterol (Fluticasone/Salmeterol 250/50 Inhaler #14) 1 puff INH BID [facility] Last Admin: 12/16/22 09:05 Dose: 1 puff Senna (Sennosides 1 Tablet) 2 tab PO DAILYP PRN PRN Reason: Constipation Tiotropium Percival (Tiotropium Percival 18 Mcg Inhalant) 18 mcg INH DAILY [facility] Last Admin: 12/16/22 09:05 Dose: 1 puff A/P Assessment and plan (1) Acute hyponatremia: Status: Acute (2) Chronic obstructive pulmonary disease: Status: Chronic (3) Cigarette smoker: Status: Acute (4) GERD (gastroesophageal reflux disease): Status: Chronic (5) Hyperlipidemia: Status: Chronic (6) Essential hypertension: Status: Acute Narrative A/P Narrative: Assessment and Plans: 1. Acute hyponatremia: Stays in PCU Consult bench jeweler Dr. Villatoro ,recs. appreciated NS@75cc/hr BMP q6hr to trend serum sodium level 2000cc/day fluid restriction 2. Essential hypertension: Losartan 3. Hyperlipidemia: Lipitor 4. COPD, stable: Spiriva Advair Diskus 5. Cigarette smoker: Nicotine patch 6. GERD: Pepcid GI ppx: Pepcid DVT ppx: Lovenox Code status: Full Prognosis: guarded Disposition: inpatient med surg Time Spent With Patient Time: Total time spent is greater than 50% in coordination of care (as documented) at patient's floor/unit and/or counseling patient: Subsequent: Total time with patient: 35 - 49 minutes QUALITY VTE Deep Vein Thrombosis/Pulmonary Embolism Present on Admission: No
--- NOTE | 2022-12-16 10:21 | Nephrology Consult Note ---
HPI Date of Consult Consult Date: 12/16/22 Requesting physician: Tremayne Cowart Primary Care Provider: Chdad Morris Consult Narrative Patient Information: Note initiated : 12/16/22 at 10:17 am Patient: Fracisco Fernandez 77 y/o M admitted on 12/14/22 for dizziness. Chief Complaint: Nausea Fracisco Fernandez is a 77-year-old male with hypertension, chronic obstructive pulmonary disease admitted on 12/14/22. He presents to the ED with dizziness, lightheadedness, headache and nausea. He spent time outside and was exposed to heat on 12/12/21. He reported no new medication or other active medical problems. He was treated with IVF. Serum sodium improved from 114 to 126. He was given Desmopressin and D5W. It decreased to 117 and stayed at this level. Nephrology consultation was requested for hyponatremia. Chief complaint: Nausea Reason for consult: Hyponatremia cc:: CC: Jonathan Fuentes Constitutional Constitutional: Present headache(s) and weakness EENT Nose, mouth and throat: Absent nasal congestion or sore throat Cardiovascular Cardiovascular: Present chest pain; Absent leg edema Respiratory Respiratory: Absent dyspnea or wheezing Gastrointestinal Gastrointestinal: Present nausea; Absent diarrhea Musculoskeletal Musculoskeletal: Absent joint swelling Integumentary Integumentary: Absent rash or wounds Neurological Neurological: Present dizziness; Absent confusion Psychiatric Psychiatric: Absent anxiety or panic attacks Hematologic/Lymphatic Hematologic/Lymphatic: Absent easy bleeding or easy bruising Allergic/Immunologic Allergic/Immunologic: Absent tongue swelling or uticaria PFSH PFSH All Active Problems (Updated 12/16/22 @ 10:17 by Mike Villatoro MD) Hyponatremia (Chronic) Essential hypertension (Acute) Cigarette smoker (Acute) Acute hyponatremia (Acute) Dizziness (Acute) Osteoarthritis of left shoulder (Chronic) Bursitis of left shoulder (Chronic) Spondylolisthesis of cervical region (Chronic) Degenerative disc disease, cervical (Chronic) Facet arthropathy, cervical (Chronic) Myofascial pain syndrome (Chronic) Dizziness (Chronic) Aortic stenosis, severe (Chronic) Vitamin D deficiency (Chronic) Tobacco use (Chronic) Tinea pedis (Chronic) Shoulder pain (Chronic) Microscopic hematuria (Chronic) Hyperlipidemia (Chronic) Hip pain (Chronic) GERD (gastroesophageal reflux disease) (Chronic) Erectile dysfunction (Chronic) Elevated PSA (Chronic) Depression (Chronic) Chronic obstructive pulmonary disease (Chronic) Chronic low back pain (Chronic) Benign essential hypertension (Chronic) Cervicalgia (Chronic) Sinusitis (Chronic) Acute exacerbation of chronic obstructive airways disease (Chronic) Blood pressure elevated without history of HTN (Chronic) Chronic neck pain (Chronic) Cervical radiculopathy (Chronic) Headache (Chronic) Medical History Acute exacerbation of chronic obstructive airways disease Aortic stenosis, severe Benign essential hypertension Blood pressure elevated without history of HTN Bursitis of left shoulder Cervical radiculopathy Cervicalgia Chronic low back pain Chronic neck pain Chronic obstructive pulmonary disease Degenerative disc disease, cervical Depression Dizziness Elevated PSA Erectile dysfunction Facet arthropathy, cervical GERD (gastroesophageal reflux disease) Headache Hip pain Hyperlipidemia Microscopic hematuria Myofascial pain syndrome Osteoarthritis of left shoulder Shoulder pain Sinusitis Spondylolisthesis of cervical region Tinea pedis Tobacco use Vitamin D deficiency Surgical History History of colonoscopy History of hernia repair Family History Other No pertinent family history Social History marital status: education level: high school service: Yes occupational status: retired smoking status: Current every day smoker alcohol intake frequency: does not drink substance use type: does not use MEDS/ALLERGIES Home Medications and Allergies Home Medications Medication Instructions Recorded Confirmed Type hydrocodone 7.5 mg-acetaminophen 1 tab PO TID 03/05/20 12/15/22 History 325 mg tablet ibuprofen 200 mg tablet 200 mg PO Q6H PRN Pain 03/05/20 12/15/22 History albuterol sulfate 90 mcg/actuation 2 puff inhalation Q6H PRN 01/09/21 12/15/22 Rx aerosol inhaler shortness of breath or wheezing #8.5 grams lidocaine 5 % topical patch 1 patch topical QDAY PRN pain #15 04/22/22 12/15/22 Rx (Lidoderm) ea methocarbamol 750 mg tablet 750 mg PO Q8HP PRN muscle spasm 12/14/22 12/15/22 History acetaminophen 500 mg tablet 500 mg PO TID 12/15/22 12/15/22 History atorvastatin 10 mg tablet 10 mg PO DAILY 12/15/22 12/15/22 History cholecalciferol (vitamin D3) 125 125 mcg PO DAILY 12/15/22 12/15/22 History mcg (5,000 unit) tablet famotidine 10 mg tablet 10 mg PO DAILY 12/15/22 12/15/22 History fluticasone 250 mcg-salmeterol 50 1 inh inhalation BID 12/15/22 12/15/22 History mcg/dose blistr powdr for inhalation guaifenesin 600 mg tablet, 600 mg PO BID 12/15/22 12/15/22 History extended release 12 hr losartan 25 mg tablet 25 mg PO BID 12/15/22 12/15/22 History sildenafil 100 mg tablet 100 mg PO QDAY 12/15/22 12/15/22 History tiotropium bromide 18 mcg capsule 1 cap inhalation DAILY 12/15/22 12/15/22 History with inhalation device (Spiriva with HandiHaler) Allergies Allergy/AdvReac Type Severity Reaction Status Date / Time bismuth subsalicylate AdvReac Mild nausea and Verified 12/15/22 07:56 [From Pepto-Bismol] vomiting tamsulosin AdvReac Mild Low blood Verified 12/15/22 07:56 pressure Physical Examination Vital Signs Vital signs: Temp Pulse Resp BP Pulse Ox O2 Del Method 97.0 F 58 L 14 148/96 97 Room Air 12/16/22 08:32 12/16/22 08:32 12/16/22 08:32 12/16/22 08:32 12/16/22 08:32 12/16/22 08:32 General Appearance General appearance: well-developed and well-nourished EENT EENT: mucous membranes moist Neck Neck: no JVD Respiratory Respiratory: clear Cardiovascular Cardiology: no edema, regular rate and regular rhythm Gastrointestinal Gastrointestinal: no tenderness Integumentary Integumentary: no rash Neurologic Neurologic: no focal deficit and alert and oriented x3 Musculoskeletal Musculoskeletal: no deformities Psychiatric Psychiatric: mood/affect appropriate and cooperative Results Lab Results 12/16/22 05:20 12/16/22 05:20 Lab results: Most recent lab results Calcium 8.6 mg/dL (8.6-10.4) 12/16/22 05:20 Phosphorus 3.5 mg/dL (2.5-4.5) 12/15/22 05:17 Magnesium 1.9 mg/dL (1.6-2.5) 12/15/22 05:17 A/P Assessment and plan (1) Hyponatremia: Assessment and plan: Fracisco Fernandez is a 77-year-old male with hypertension, chronic obstructive pulmonary disease admitted on 12/14/22. He presents to the ED with dizziness, lightheadedness, headache and nausea. He spent time outside and was exposed to heat on 12/12/21. He reported no new medication or other active medical problems. He was treated with IVF. Serum sodium improved from 114 to 126. He was given Desmopressin and D5W. It decreased to 117 and stayed at this level. Nephrology consultation was requested for hyponatremia. Hyponatremia, hypoosmolar, initially considered hypovolemic, severe (<120), chronic (>48 hours), symptomatic (nausea, headache), not associated with medications (SSRI, thiazide diuretic), not consistent with SIADH (Urine Sodium 13). Work up: Urinalysis on 12/14/22: Straw, Clear, pH 7.0, SG 1.001, protein negative, blood negative, leukocyte esterase negative. Labs on 12/14/22: Serum osmolality 243, serum sodium 114, urine osmolality 66, urine sodium 13. Labs on 12/14/22: TSH 0.27. CT Head on 12/14/22: Normal brain. Labs on 12/15/22: AM Cortisol 5.2. Treatment: Desmopressin 2 mcg IV on 12/15/22 at 08:00. NS at 75 ml/hr. Progress: Serum Sodium: 01/09/21 21:11: 133 12/14/22 17:30: 114 12/15/22 05:17: 126 12/16/22 00:20: 117 12/16/22 05:20: 117 Discussion: Desmopressin duration is ~6 to 14 hours. The decrease from 126 to 117 and staying 117 is likely due to Desmopressin and expected to resolve now. He reports epigastric discomfort and nausea. I would continue IV NS for now. RECOMMENDATIONS AND PLAN: Continue IV NS. BMP every 6 hours. Target serum sodium elevation: <4-6 mEq/L/24 hours. Goal serum sodium of >130 mEq/L. Status: Chronic Time Spent With Patient Time: Total time spent is greater than 50% in coordination of care (as documented) at patient's floor/unit and/or counseling patient:
[2022-12-16] MEDS: hydrALAZINE 20 MG/ML VIAL IV PRN ×2 (11:32→19:20)
[2022-12-16 14:02] LABS: Blood Urea Nitrogen 4 mg/dL (8-23); Calcium 8.8 mg/dL (8.6-10.4); Carbon Dioxide 21 mmol/L (22-30); Chloride 83 mmol/L (96-108); Glomerular Filtration Rate 104; Glucose 100 mg/dL (70-105)
[2022-12-16] MEDS ORDERED: SODIUM CHLORIDE 1 GM TABLET PO ONE ×2 (14:13→19:46)
[2022-12-16 19:23] LABS: Blood Urea Nitrogen 4 mg/dL (8-23); Calcium 8.6 mg/dL (8.6-10.4); Carbon Dioxide 20 mmol/L (22-30); Chloride 81 mmol/L (96-108); Glomerular Filtration Rate 104; Glucose 101 mg/dL (70-105)
[2022-12-16] MEDS ORDERED: 0.9 % SODIUM CHLORIDE 1,000 ML IV SCH (19:30)
[2022-12-16] MEDS: MECLIZINE 25 MG TABLET PO PRN (19:40)
[2022-12-17] MEDS ORDERED: SODIUM CHLORIDE 1 GM TABLET PO ONE (00:45)
[2022-12-17 01:45] LABS: Blood Urea Nitrogen 5 mg/dL (8-23); Calcium 8.4 mg/dL (8.6-10.4); Carbon Dioxide 22 mmol/L (22-30); Chloride 82 mmol/L (96-108); Glomerular Filtration Rate 104; Glucose 96 mg/dL (70-105)
[2022-12-17] MEDS: ACETAMINOPHEN 325 MG TABLET PO PRN (03:55)
[2022-12-17 05:01] LABS: Basophils # (Auto) 0.05 K/mcL (0.00-0.30); Basophils % (Auto) 0.6 % (0.0-2.0); Eosinophils # (Auto) 0.37 K/mcL (0.00-0.70); Eosinophils % (Auto) 4.2 % (0.0-7.0); Hematocrit 38.5 % (40.1-51.0); Hemoglobin 13.8 g/dL (13.7-17.5); Lymphocytes # (Auto) 1.22 K/mcL (1.50-4.80); Lymphocytes % (Auto) 13.8 % (15.5-49.0); Mean Cell Volume 85.9 fL (80.0-100.0); Mean Corpuscular HGB Conc 35.8 g/dL (31.0-36.0); Mean Platelet Volume 9.5 fL (8.8-12.5); Monocytes % (Auto) 12.4 % (1.0-12.0); Neutrophils % (Auto) 68.8 % (38.0-78.0); Platelet Count 313 K/mcL (140-440); RBC 4.48 M/mcL (4.63-6.08); Red Cell Distribution Width 11.7 % (11.5-14.5); WBC 8.9 K/mcL (4.5-11.0)
[2022-12-17 05:38] LABS: ALT/SGPT 16 U/L (<40); AST/SGOT 15 U/L (<40); Albumin 3.5 gm/dL (3.2-5.2); Albumin/Globulin Ratio 1.3 (1.0-2.3); Alkaline Phosphatase 65 U/L (39-117); Bilirubin,Direct 0.2 mg/dL (<0.3); Bilirubin,Total 0.7 mg/dL (0.1-1.0); Blood Urea Nitrogen 5 mg/dL (8-23); Calcium 8.7 mg/dL (8.6-10.4); Carbon Dioxide 22 mmol/L (22-30); Chloride 85 mmol/L (96-108); Globulin 2.6 gm/dL (2.2-3.7); Glomerular Filtration Rate 96; Glucose 105 mg/dL (70-105); Lactate Dehydrogenase 199 U/L (135-225); Phosphorous 2.2 mg/dL (2.5-4.5); Triglycerides 60 mg/dL (<150); Uric Acid 4.1 mg/dL (2.5-8.0)
--- NOTE | 2022-12-17 05:40 | Nephrology Progress Note ---
SUBJECTIVE Subjective Patient information: Note initiated : 12/17/22 at 5:39 am Patient: Fracisco Fernandez 77 y/o M admitted on 12/14/22 for dizziness. Chief Complaint: Weakness Pertinent ROS: Weakness Nausea improved Headache resolved. Constitutional Vitals: Vital Signs Temp Pulse Resp BP Pulse Ox O2 Del Method O2 Flow Rate 97.6 F 74 16 127/78 97 Room Air 0 12/17/22 04:01 12/17/22 04:35 12/17/22 04:35 12/17/22 04:11 12/17/22 04:35 12/17/22 04:01 12/16/22 19:25 Period Temp Pulse Resp BP Sys/Katz Pulse Ox O2 Del Method O2 Flow Rate Last 24 Hr 97.0 F-98.3 F 55-84 13-25 116-175/69-96 96-100 Room Air-Room Air 0 Intake and Output 12/16/22 12/17/22 12/17/22 19:59 03:59 11:59 Intake Total 518 0 Output Total 1120 1825 Balance -602 -1825 Weight 145 lb 14.4 oz Intake & Output: Intake & Output 12/16/22 12/17/22 12/17/22 19:59 03:59 11:59 Intake Total 518 0 Output Total 1120 1825 Balance -602 -1825 Weight 145 lb 14.4 oz Intake: IV 518 0 Sodium Chloride 0.9% 1,000 ml @ 518 0 75 mls/hr IV .[id number] [facility] Rx#: [id number] Output: Void Amount 870 1650 Emesis 250 175 Other: Urine Appearance Clear Clear Urine Color Yellow Yellow Pale Urine Odor Normal # Emeses 1 General appearance: cooperative and no acute distress Head Head exam: Present normal inspection Eye Eye exam: Present normal appearance ENT ENT exam: Present mucous membranes moist Respiratory Respiratory exam: Absent respiratory distress Cardiovascular Cardiovascular exam: Present normal rate and rhythm GI/Abdominal GI/Abdominal exam: Present soft; Absent tenderness Extremities Exam Extremities exam: Absent joint swelling or pedal edema Neurological Exam Neurological exam: Present alert and oriented X3 Psychiatric Psychiatric exam: Present normal affect and normal mood Skin Skin exam: Present warm; Absent rash A/P Assessment and plan (1) Hyponatremia: Assessment and plan: Fracisco Fernandez is a 77-year-old male with hypertension, chronic obstructive pulmonary disease admitted on 12/14/22. He presents to the ED with dizziness, lightheadedness, headache and nausea. He spent time outside and was exposed to heat on 12/12/21. He reported no new medication or other active medical problems. He was treated with IVF. Serum sodium improved from 114 to 126. He was given Desmopressin and D5W. It decreased to 117 and stayed at this level. Nephrology consultation was requested for hyponatremia. Hyponatremia, hypoosmolar, initially considered hypovolemic, initially severe (<120), chronic (>48 hours), possibly symptomatic (nausea, headache), not associated with medications (SSRI, thiazide diuretic), not clear whether SIADH (initial urine sodium 13, repeat urine sodium 169). Hypovolemia is questionable with urine SG of 1.001 on 12/14/22. Work up: Urinalysis on 12/14/22: Straw, Clear, pH 7.0, SG 1.001, protein negative, blood negative, leukocyte esterase negative. Labs on 12/14/22: Serum osmolality 243, serum sodium 114, urine osmolality 66, urine sodium 13. Labs on 12/14/22: TSH 0.27. CT Head on 12/14/22: Normal brain. Labs on 12/15/22: AM Cortisol 5.2. Labs on 12/16/22: Repeat urine sodium 169, questionable. Treatment: Sodium Chloride a total of 6 g PO given in the past 24 hours, but likely 2 g vomited. Fluid restriction 1500 ml/day. IVF discontinued. NSAIDs discontinued. Progress: Serum Sodium: 01/09/21 21:11: 133 12/14/22 17:30: 114 12/15/22 05:17: 126 12/16/22 00:20: 117 12/16/22 05:20: 117 12/16/22 12:00: 114 12/16/22 17:55: 113 12/17/22 00:20: 114 12/17/22 04:07: 117 Discussion: The decrease from 117 to 113 was associated with high urine output >3,000/24 hours c/w excessive water (PO and IV) intake. RECOMMENDATIONS AND PLAN: No IVF. No NSAIDs. Fluid restriction 1500 ml/day. Next serum sodium at 11:00. Target serum sodium elevation: <4-6 mEq/L/24 hours. Goal serum sodium of >130 mEq/L. Status: Chronic Time Spent With Patient Time: Total time spent is greater than 50% in coordination of care (as documented) at patient's floor/unit and/or counseling patient:
[2022-12-17] MEDS: ONDANSETRON 4 MG/2 ML VIAL IV PRN (07:55)
[2022-12-17] MEDS: HYDROCODONE/APAP 7.5/325MG TABLET PO SCH ×3 (07:55→21:40)
[2022-12-17] MEDS: LOSARTAN 25 MG TABLET PO SCH ×2 (07:56→21:41)
[2022-12-17] MEDS: FAMOTIDINE 20 MG TABLET PO SCH (07:56)
[2022-12-17] MEDS: ENOXAPARIN 40 MG/0.4 ML SYRINGE SQ SCH (07:56)
[2022-12-17] MEDS: ATORVASTATIN 10 MG TABLET PO SCH (08:02)
[2022-12-17] MEDS: DOCUSATE SODIUM 100 MG CAPSULE PO SCH ×2 (08:02→21:41)
[2022-12-17] MEDS: METHOCARBAMOL 750 MG TABLET PO SCH ×2 (08:02→21:40)
[2022-12-17] MEDS: FLUTICASONE/SALMETEROL 250/50 INHALER #14 INH SCH ×2 (08:08→21:33)
[2022-12-17] MEDS: TIOTROPIUM BROMIDE 18 MCG INHALANT INH SCH (08:08)
[2022-12-17] MEDS: MECLIZINE 25 MG TABLET PO PRN (08:18)
[2022-12-17] MEDS: LIDOCAINE PATCH TOPICAL SCH (09:18)
[2022-12-17] MEDS: NICOTINE 21 MG PATCH TOPICAL SCH (10:35)
--- NOTE | 2022-12-17 10:36 | Internal Med Progress Note ---
SUBJECTIVE Subjective Patient information: Note initiated : 12/17/22 at 10:34 am Service Date, if different from initiated Date: [] Patient: Fracisco Fernandez a 77 y/o M admitted on 12/14/22 for dizziness. Chief Complaint: [] Interval history: Mr. Fernandez is a 77 year old M Presents to the ED with dizziness lightheadedness headaches muscle cramping and nausea but no vomiting. He noticed it today while he was out working in the sun. Patient has been out in the sun for the past few days taking a whole for a pool. He says he usually does fine in the sun but really noticed today how ill he was starting to become. Patient denies chest pain shortness of breath diarrhea. In the ED he was evaluated found to have a [id number] sodium of 118. Hypochloride anemia. Other labs pending. Head CT done and unremarkable. Patient started on IV fluid. denies etoh intake or excessive water intake 12/15 Patient had significant auto diuresis. Rapid rise in sodium. Will reverse partially with DDAVP and D5 water and follow-up closely. Patient feeling better otherwise no nausea vomiting headache. Patient wanted to go home but I advised him of the risks and he understood, willing to stay until appropriately treated and medically cleared. 12/16: Serum sodium level 117 last midnight and 117 this morning. Patient is still complaining of lightheadedness and burping. He denies any pain. He denies any nausea or vomting. He denies any muscle cramping. NS@75cc/hr. BMP q6hr. 2000cc/day fluid restriction. Consult pierre Quesada. appreciated. Overall condition guarded. Stays in PCU. 12/17: Serum sodium level 117 this morning. Patient was complaining of dizziness and vertigo earlier, relived by meclizine. Continue to manage hyponatremia with pierre Quesada. appreciated. Next serum sodium check at 1100 today. 1500cc/day fluid restriction. Saline lock. Overall condition guarded. Stays in PCU. Constitutional Vitals: Vital Signs Temp Pulse Resp BP Pulse Ox O2 Del Method O2 Flow Rate 36.4 C 74 16 145/68 97 Room Air 0 12/17/22 04:01 12/17/22 04:35 12/17/22 09:28 12/17/22 08:06 12/17/22 04:35 12/17/22 04:01 12/16/22 19:25 Period Temp Pulse Resp BP Sys/Katz Pulse Ox O2 Del Method O2 Flow Rate Last 24 Hr 36.3 C-36.8 C 66-84 13-25 116-163/68-86 96-100 Room Air-Room Air 0 Intake and Output 12/16/22 12/17/22 12/17/22 19:59 03:59 11:59 Intake Total 518 0 0 Output Total 1120 1825 400 Balance -602 -1825 -400 Weight 66.179 kg Intake & Output: Intake & Output 12/16/22 12/17/22 12/17/22 19:59 03:59 11:59 Intake Total 518 0 0 Output Total 1120 1825 400 Balance -602 -1825 -400 Weight 66.179 kg Intake: IV 518 0 0 Sodium Chloride 0.9% 1,000 ml @ 518 0 0 75 mls/hr IV .[id number] [facility] Rx#: [id number] Output: Void Amount 870 1650 400 Emesis 250 175 Other: Percent of Meal Consumed 50% Urine Appearance Clear Clear Clear Urine Color Yellow Yellow Dark Yellow Pale Urine Odor Normal # Emeses 1 Head Head exam: Present atraumatic and normal inspection Eye Eye exam: Present normal appearance ENT ENT exam: Present mucous membranes moist, normal exam and normal external ear exam Neck Neck exam: Present normal inspection Respiratory Respiratory exam: Present normal respiratory exam Cardiovascular Cardiovascular exam: Present normal rate and rhythm GI/Abdominal GI/Abdominal exam: Present normal bowel sounds Back Exam Back exam: Present normal inspection Neurological Exam Neurological exam: Present alert and oriented X3 Skin Skin exam: Present intact and warm OBJ DATA Labs 12/17/22 04:07 12/17/22 04:07 Labs: Abnormal Lab Results 12/17/22 12/17/22 12/17/22 04:07 04:07 00:20 RBC 4.48 L Hgb Hct 38.5 L POC Hct MCHC Lymph % (Auto) 13.8 L [place] % (Auto) 12.4 H Eos % (Auto) Lymph # (Auto) 1.22 L [place] # (Auto) 1.10 H Eos # (Auto) POC Sodium Sodium 117 L* 114 L* POC Chloride Chloride 85 L 82 L Carbon Dioxide Anion Gap POC BUN BUN 5 L 5 L Creatinine 0.6 L 0.5 L POC Creatinine Glucose POC Glucose Osmolality Calcium 8.4 L POC WB Ioniz Calcium Phosphorus 2.2 L Lactate Dehydrogenase Total Protein Urine Osmolality 12/16/22 12/16/22 12/16/22 17:55 12:00 05:20 RBC Hgb Hct POC Hct MCHC Lymph % (Auto) [place] % (Auto) Eos % (Auto) Lymph # (Auto) [place] # (Auto) Eos # (Auto) POC Sodium Sodium 113 L* 114 L* 117 L* POC Chloride Chloride 81 L 83 L 87 L Carbon Dioxide 20 L 21 L Anion Gap 7.0 L POC BUN BUN 4 L 4 L 5 L Creatinine 0.5 L 0.5 L 0.6 L POC Creatinine Glucose 109 H POC Glucose Osmolality Calcium POC WB Ioniz Calcium Phosphorus Lactate Dehydrogenase Total Protein Urine Osmolality 12/16/22 12/16/22 12/15/22 05:20 00:20 18:05 RBC 3.91 L Hgb 11.7 L Hct 34.3 L POC Hct 37.0 L MCHC Lymph % (Auto) [place] % (Auto) 12.6 H Eos % (Auto) 14.9 H Lymph # (Auto) 1.32 L [place] # (Auto) Eos # (Auto) 1.04 H POC Sodium 120 L Sodium 117 L* POC Chloride 86 L Chloride 86 L Carbon Dioxide Anion Gap 7.0 L POC BUN 5 L BUN 6 L Creatinine 0.6 L POC Creatinine 0.5 L Glucose POC Glucose Osmolality Calcium 8.5 L POC WB Ioniz Calcium Phosphorus Lactate Dehydrogenase Total Protein Urine Osmolality 12/15/22 12/15/22 12/15/22 12:01 05:17 05:13 RBC Hgb Hct POC Hct 39.0 L 38.0 L MCHC Lymph % (Auto) [place] % (Auto) Eos % (Auto) Lymph # (Auto) [place] # (Auto) Eos # (Auto) POC Sodium 125 L 128 L Sodium 126 L POC Chloride 91 L Chloride Carbon Dioxide Anion Gap 7.0 L POC BUN 5 L BUN 6 L Creatinine 0.6 L POC Creatinine Glucose POC Glucose 112 H 108 H Osmolality Calcium POC WB Ioniz Calcium 1.13 L Phosphorus Lactate Dehydrogenase Total Protein 5.8 L Urine Osmolality 12/14/22 12/14/22 12/14/22 23:06 19:58 18:49 RBC Hgb Hct POC Hct 38.0 L 40.0 L MCHC Lymph % (Auto) [place] % (Auto) Eos % (Auto) Lymph # (Auto) [place] # (Auto) Eos # (Auto) POC Sodium 125 L 119 L Sodium POC Chloride 92 L 87 L Chloride Carbon Dioxide Anion Gap POC BUN 4 L 5 L BUN Creatinine POC Creatinine 0.4 L Glucose POC Glucose 151 H Osmolality Calcium POC WB Ioniz Calcium 1.12 L 1.09 L Phosphorus Lactate Dehydrogenase Total Protein Urine Osmolality 66 L 12/14/22 12/14/22 12/14/22 17:34 17:31 17:30 RBC 4.17 L Hgb 13.0 L Hct 35.9 L POC Hct MCHC 36.2 H Lymph % (Auto) [place] % (Auto) 12.1 H Eos % (Auto) 18.3 H Lymph # (Auto) 1.08 L [place] # (Auto) Eos # (Auto) 1.26 H POC Sodium 118 L* Sodium 114 L* POC Chloride 86 L Chloride 84 L Carbon Dioxide 20 L Anion Gap POC BUN BUN 6 L Creatinine 0.5 L POC Creatinine 0.5 L Glucose 111 H POC Glucose 115 H Osmolality 243 L Calcium POC WB Ioniz Calcium 1.08 L Phosphorus Lactate Dehydrogenase 363 H Total Protein Urine Osmolality Meds: Medications Acetaminophen (Acetaminophen 325 Mg Tablet) 650 mg PO Q6HP PRN; Protocol PRN Reason: Per Pain Protocol Last Admin: 12/17/22 03:55 Dose: 650 mg Hydrocodone Bitart/Acetaminophen (Hydrocodone/Apap 7.5/325mg Tablet) 1 tab PO TID [facility]; Protocol Last Admin: 12/17/22 07:55 Dose: 1 tab Albuterol/Ipratropium (Ipratropium/Albuterol 3 Ml Ampul.Neb) 3 ml NEB Q4HP PRN PRN Reason: Shortness Of Breath Last Admin: 12/15/22 09:27 Dose: 3 ml Atorvastatin Calcium (Atorvastatin 10 Mg Tablet) 10 mg PO DAILY [facility] Last Admin: 12/17/22 08:02 Dose: 10 mg Belladonna/Phenobarbital (Phenobarb/Hyoscy/Atropine/Scop 1 Dose Bottle) 1 dose PO Q4HP PRN PRN Reason: Dyspepsia Last Admin: 12/16/22 08:58 Dose: 1 dose Docusate Sodium (Docusate Sodium 100 Mg Capsule) 100 mg PO BID [facility] Last Admin: 12/17/22 08:02 Dose: 100 mg Enoxaparin Sodium (Enoxaparin 40 Mg/0.4 Ml Syringe) 40 mg SQ DAILY [facility] Last Admin: 12/17/22 07:56 Dose: 40 mg Famotidine (Famotidine 20 Mg Tablet) 20 mg PO DAILY [facility] Last Admin: 12/17/22 07:56 Dose: 20 mg Hydralazine HCl (Hydralazine 20 Mg/Ml Vial) 0 mg IV Q2HP PRN PRN Reason: Hypertension Last Admin: 12/16/22 19:20 Dose: 10 mg Potassium Chloride 40 meq/ (Dextrose) 520 mls @ 130 mls/hr IV UD PRN PRN Reason: Potassium Level < 3 Magnesium Sulfate (Magnesium Sulfate) 2 gm in 50 mls @ 25 mls/hr IV UD PRN PRN Reason: Magnesium Level </= 1.6 Lidocaine (Lidocaine Patch) 1 patch TOPICAL DAILY@1000 [facility] Last Admin: 12/17/22 09:18 Dose: Not Given Losartan Potassium (Losartan 25 Mg Tablet) 25 mg PO BID [facility] Last Admin: 12/17/22 07:56 Dose: 25 mg Meclizine HCl (Meclizine 25 Mg Tablet) 25 mg PO TIDP PRN PRN Reason: Vertigo Last Admin: 12/17/22 08:18 Dose: 25 mg Methocarbamol (Methocarbamol 750 Mg Tablet) 750 mg PO BID [facility] Last Admin: 12/17/22 08:02 Dose: 750 mg Methocarbamol (Methocarbamol 750 Mg Tablet) 750 mg PO Q8HP PRN PRN Reason: muscle spasm Nicotine (Nicotine 21 Mg Patch) 21 mg TOPICAL DAILY@1000 [facility] Last Admin: 12/16/22 08:57 Dose: 21 mg Ondansetron HCl (Ondansetron 4 Mg/2 Ml Vial) 4 mg IV Q4HP PRN PRN Reason: Nausea And Vomiting Last Admin: 12/17/22 07:55 Dose: 4 mg Polyethylene Glycol (Polyethylene Glycol 3350 17 Gm Packet) 17 gm PO DAILYP PRN PRN Reason: Constipation Potassium Chloride (Potassium Chloride 20 Meq Tablet) 40 meq PO UD PRN PRN Reason: Potassium Level of 3-3.5 Potassium Chloride (Potassium Chloride 20 Meq Tablet) 40 meq PO UD PRN PRN Reason: Potassium Level < 3 Fluticasone/Salmeterol (Fluticasone/Salmeterol 250/50 Inhaler #14) 1 puff INH BID [facility] Last Admin: 12/17/22 08:08 Dose: Not Given Senna (Sennosides 1 Tablet) 2 tab PO DAILYP PRN PRN Reason: Constipation Tiotropium [place] (Tiotropium [place] 18 Mcg Inhalant) 18 mcg INH DAILY [facility] Last Admin: 12/17/22 08:08 Dose: Not Given A/P Assessment and plan (1) Acute hyponatremia: Status: Acute (2) Chronic obstructive pulmonary disease: Status: Chronic (3) Cigarette smoker: Status: Acute (4) GERD (gastroesophageal reflux disease): Status: Chronic (5) Hyperlipidemia: Status: Chronic (6) Essential hypertension: Status: Acute Narrative A/P Narrative: Assessment and Plans: 1. Acute hyponatremia: Stays in PCU Consult hide salter pierre Quesada. appreciated Saline lock Next serum sodium check at 1100 today 1500cc/day fluid restriction 2. Essential hypertension: Losartan 3. Hyperlipidemia: Lipitor 4. COPD, stable: Spiriva Advair Diskus 5. Cigarette smoker: Nicotine patch 6. GERD: Pepcid GI ppx: Pepcid DVT ppx: Lovenox Code status: Full Prognosis: guarded Disposition: inpatient med surg Time Spent With Patient Time: Total time spent is greater than 50% in coordination of care (as documented) at patient's floor/unit and/or counseling patient: Subsequent: Total time with patient: 35 - 49 minutes QUALITY VTE Deep Vein Thrombosis/Pulmonary Embolism Present on Admission: No
[2022-12-18 05:16] LABS: Blood Urea Nitrogen 7 mg/dL (8-23); Carbon Dioxide 24 mmol/L (22-30); Chloride 95 mmol/L (96-108); Glomerular Filtration Rate 96; Glucose 94 mg/dL (70-105)
--- NOTE | 2022-12-18 06:22 | Nephrology Progress Note ---
SUBJECTIVE Subjective Patient information: Note initiated : 12/18/22 at 6:22 am Patient: Fracisco Fernandez 77 y/o M admitted on 12/14/22 for dizziness. Chief Complaint: Weakness Pertinent ROS: Weakness Constitutional Vitals: Vital Signs Temp Pulse Resp BP Pulse Ox O2 Del Method O2 Flow Rate 98.0 F 63 14 111/66 94 Room Air 0 12/18/22 04:02 12/18/22 05:00 12/18/22 05:00 12/18/22 04:02 12/18/22 05:00 12/18/22 04:02 12/18/22 02:01 Period Temp Pulse Resp BP Sys/Katz Pulse Ox O2 Del Method O2 Flow Rate Last 24 Hr 97.9 F-98.1 F 63-77 13-22 95-145/60-97 94-99 Room Air-Room Air 0-0 Intake and Output 12/17/22 12/18/22 12/18/22 19:59 03:59 11:59 Intake Total 870 Output Total 1550 1600 Balance -680 -1600 Weight 136 lb 11.2 oz Intake & Output: Intake & Output 12/17/22 12/18/22 12/18/22 19:59 03:59 11:59 Intake Total 870 Output Total 1550 1600 Balance -680 -1600 Weight 136 lb 11.2 oz Intake: Oral 870 Output: Void Amount 1550 1600 Other: Meal Dinner Percent of Meal Consumed 75% Urine Appearance Clear Clear Urine Color Yellow Yellow Pale Urine Odor Normal Normal General appearance: cooperative and no acute distress Head Head exam: Present normal inspection Eye Eye exam: Present normal appearance ENT ENT exam: Present mucous membranes moist Respiratory Respiratory exam: Absent respiratory distress Cardiovascular Cardiovascular exam: Present normal rate and rhythm GI/Abdominal GI/Abdominal exam: Present soft; Absent tenderness Extremities Exam Extremities exam: Absent joint swelling or pedal edema Neurological Exam Neurological exam: Present alert and oriented X3 Psychiatric Psychiatric exam: Present normal affect and normal mood Skin Skin exam: Present warm; Absent rash A/P Assessment and plan (1) Hyponatremia: Assessment and plan: Fracisco Fernandez is a 77-year-old male with hypertension, chronic obstructive pulmonary disease admitted on 12/14/22. He presents to the ED with dizziness, lightheadedness, headache and nausea. He spent time outside and was exposed to heat on 12/12/21. He reported no new medication or other active medical probl ems. He was treated with IVF. Serum sodium improved from 114 to 126. He was given Desmopressin and D5W. It decreased to 117 and stayed at this level. Nephrology consultation was requested for hyponatremia. Hyponatremia, hypoosmolar, initially considered hypovolemic, initially severe (<120), chronic (>48 hours), possibly symptomatic (nausea, headache), not associated with medications (SSRI, thiazide diuretic), not clear whether SIADH (initial urine sodium 13, repeat urine sodium 169). 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 Hypovolemia is questionable with urine SG of 1.001 on 12/14/22. Work up: Urinalysis on 12/14/22: Straw, Clear, pH 7.0, SG 1.001, protein negative, blood negative, leukocyte esterase negative. Labs on 12/14/22: Serum osmolality 243, serum sodium 114, urine osmolality 66, urine sodium 13. Labs on 12/14/22: TSH 0.27. CT Head on 12/14/22: Normal brain. Labs on 12/15/22: AM Cortisol 5.2. Labs on 12/16/22: Urine sodium 169. Treatment: Fluid restriction 1500 ml/day. No IVF or NSAIDs. Progress: Serum Sodium: 01/09/21 21:11: 133 12/14/22 17:30: 114 12/15/22 05:17: 126 12/16/22 00:20: 117 12/16/22 05:20: 117 12/16/22 12:00: 114 12/16/22 17:55: 113 12/17/22 00:20: 114 12/17/22 04:07: 117 12/17/22 11:00: 120 12/17/22 16:47: 122 12/18/22 04:00: 127 Discussion: Urine output 3,550 ml/24 hr c/w high fluid intake, or diuresis of previous fluid retention. Cumulative I/O: -4L. RECOMMENDATIONS AND PLAN: Fluid restriction. BMP and urine sodium next week. Outpatient nephrology follow up with me next week. Status: Chronic Time Spent With Patient Time: Total time spent is greater than 50% in coordination of care (as documented) at patient's floor/unit and/or counseling patient:
--- NOTE | 2022-12-18 09:23 | Discharge Summary ---
Discharge Provider Provider IMPORTANT FOLLOW-UP INFORMATION FOR PCP: Patient information: Note initiated : 12/18/22 at 9:20 am Service Date, if different from initiated Date: [] Patient: Fracisco Fernandez 77 y/o M admitted on 12/14/22 for dizziness. Chief Complaint: [] Date of admission: 12/14/22 20:38 Discharge date: 12/18/22 Primary care physician: Chadd Morris Attending physician on admission: Jonathan Fuentes Consults: 12/14/22 Consult to Physician [CONS] Stat Comment: Consulting Provider: Jonathan Fuentes Reason For Exam: Physician to Consult 12/16/22 08:59 Consult to Physician [CONS] Routine Comment: hyponatremia Consulting Provider: Mike Villatoro Reason For Exam: Physician to Consult Attending physician on discharge: [employer] COURSE Hospital Course Hospital course: Mr. Fernandez is a 77 year old M Presents to the ED with dizziness lightheadedness headaches muscle cramping and nausea but no vomiting. He noticed it today while he was out working in the sun. Patient has been out in the sun for the past few days taking a whole for a pool. He says he usually does fine in the sun but really noticed today how ill he was starting to become. Patient denies chest pain shortness of breath diarrhea. In the ED he was evaluated found to have a mpwrf-[id number] sodium of 118. Hypochloride anemia. Other labs pending. Head CT done and unremarkable. Patient started on IV fluid. denies etoh intake or excessive water intake 12/15 Patient had significant auto diuresis. Rapid rise in sodium. Will reverse partially with DDAVP and D5 water and follow-up closely. Patient feeling better otherwise no nausea vomiting headache. Patient wanted to go home but I advised him of the risks and he understood, willing to stay until appropriately treated and medically cleared. 12/16: Serum sodium level 117 last midnight and 117 this morning. Patient is still complaining of lightheadedness and burping. He denies any pain. He denies any nausea or vomting. He denies any muscle cramping. NS@75cc/hr. BMP q6hr. 2000cc/day fluid restriction. Consult pierre Quesada. appreciated. Overall condition guarded. Stays in PCU. 12/17: Serum sodium level 117 this morning. Patient was complaining of dizziness and vertigo earlier, relived by meclizine. Continue to manage hyponatremia with pierre Quesada. appreciated. Next serum sodium check at 1100 today. 1500cc/day fluid restriction. Saline lock. Overall condition guarded. Stays in PCU. 12/18: Discharged home. BMP on 12/22, follow up with Dr. Villatoro on 12/23. All questions were answered prior to patient being physiclly discharged. Discharge diagnosis: Hyponatremia Time Spent with Patient Time attestation: Total time spent providing and/or coordinating discharge services: Time spent: Less than 30 minutes EXAM Constitutional Vitals: Temp Pulse Resp BP Pulse Ox O2 Del Method O2 Flow Rate 36.2 C 70 20 122/74 94 Room Air 0 12/18/22 08:01 12/18/22 08:01 12/18/22 08:01 12/18/22 08:01 12/18/22 08:01 12/18/22 08:00 12/18/22 02:01 General appearance: cooperative and no acute distress Head Head exam: Present atraumatic and normocephalic Eye Eye exam: Present EOMI and PERRL ENT ENT exam: Present mucous membranes moist, normal exam and normal external ear exam Neck Neck exam: Present normal inspection; Absent lymphadenopathy, tenderness or thyromegaly Respiratory Respiratory exam: Absent accessory muscle use, respiratory distress or wheezes Cardiovascular Cardiovascular exam: Present normal rate and rhythm; Absent JVD GI/Abdominal GI/Abdominal exam: Present normal bowel sounds and soft; Absent organomegaly or tenderness Rectal Rectal exam: Present deferred Extremities Exam Extremities exam: Present full ROM, normal capillary refill and normal inspection; Absent tenderness Neurological Exam Neurological exam: Present alert, CN II-XII intact and oriented X3; Absent motor sensory deficit Psychiatric Psychiatric exam: Present normal affect and normal mood; Absent anxious or depressed Skin Skin exam: Present dry and intact Discharge Data Data Completed and Pending Labs on day of discharge: Labs from last 24 hours 12/18/22 12/17/22 12/17/22 04:00 16:47 11:00 Sodium 127 L 122 L 120 L Potassium 4.2 Chloride 95 L Carbon Dioxide 24 Anion Gap 8.0 BUN 7 L Creatinine 0.6 L GFR Calculation 96 Glucose 94 Calcium 9.0 Discharge Plan Patient/Caregiver Discharge Instructions Activity: increase activity as tolerated Diet: Regular Diet Instructions: Dehydration (GEN), Hyponatremia (GEN) Activity Restrictions/Additional Instructions: 2L/day fluid restriction Prescriptions: Continued ibuprofen 200 mg tablet 200 mg PO Q6H PRN (Reason: Pain) hydrocodone-acetaminophen 7.5-325 mg tablet 1 tab PO TID albuterol sulfate 90 mcg/actuation HFA aerosol inhaler 2 puff inhalation Q6H PRN (Reason: shortness of breath or wheezing) Qty: 8.5 0RF lidocaine [Lidoderm] 5 % adhesive patch,medicated 1 patch topical QDAY PRN (Reason: pain) Qty: 15 0RF Rx Instructions: leave on most painful area for up to 12 hrs methocarbamol 750 mg tablet 750 mg PO Q8HP PRN (Reason: muscle spasm) acetaminophen 500 mg Tablet 500 mg PO TID fluticasone propion-salmeterol 250-50 mcg/dose Blister With Device 1 inh INHALATION BID famotidine 10 mg Tablet 10 mg PO DAILY atorvastatin 10 mg Tablet 10 mg PO DAILY sildenafil 100 mg Tablet 100 mg PO QDAY Rx Instructions: administer 30 minutes to 4 hours before activity losartan 25 mg Tablet 25 mg PO BID Spiriva with HandiHaler 18 mcg Capsule, W/Inhalation Device 1 cap INHALATION DAILY cholecalciferol (vitamin D3) 125 mcg (5,000 unit) Tablet 125 mcg PO DAILY guaifenesin 600 mg Tablet Extended Release 12hr 600 mg PO BID Other Ambulatory Orders: Basic Metabolic Panel (Routine) Timeframe: 20221222 Facility: [facility] - Location: Laboratory Ordered By: Tremayne Cowart Follow Up Plan Follow up with: Mike Villatoro MD [Physician] - Chadd Morris ARNP [Primary Care Provider] - (Your primary care physician will contact you to schedule an appointment. If they do not call within a couple of days please contact them. ) Patient Disposition: Home, Self-Care Prognosis: Fair Rehab Potential: Good I certify that the patient requires SNF services: No Overall status at discharge: patient is progressing back to baseline Discharge Orders: Discharge Order (Routine); Ordered 12/18/22 Ordered By: Tremayne Cowart QUALITY VTE Deep Vein Thrombosis/Pulmonary Embolism Present on Admission: No
[2022-12-18] MEDS: HYDROCODONE/APAP 7.5/325MG TABLET PO SCH (09:39)
[2022-12-18] MEDS: LOSARTAN 25 MG TABLET PO SCH (09:39)
[2022-12-18] MEDS: DOCUSATE SODIUM 100 MG CAPSULE PO SCH (09:39)
[2022-12-18] MEDS: ENOXAPARIN 40 MG/0.4 ML SYRINGE SQ SCH (09:39)
[2022-12-18] MEDS: FAMOTIDINE 20 MG TABLET PO SCH (09:39)
[2022-12-18] MEDS: ATORVASTATIN 10 MG TABLET PO SCH (09:39)
[2022-12-18] MEDS: FLUTICASONE/SALMETEROL 250/50 INHALER #14 INH SCH (09:39)
[2022-12-18] MEDS: NICOTINE 21 MG PATCH TOPICAL SCH (09:40)
[2022-12-18] MEDS: METHOCARBAMOL 750 MG TABLET PO SCH (09:40)
[2022-12-18] MEDS: TIOTROPIUM BROMIDE 18 MCG INHALANT INH SCH (09:40)
[2022-12-18] MEDS: LIDOCAINE PATCH TOPICAL SCH (09:40)
== END 2022-12-18 10:30 | disposition home or self-care (01) | DRG 641 ==
LOC: ED 16:30 → ICU 20:38
PROVIDERS: ADMIT Internal Medicine; ATTEND Internal Medicine